=== PATIENT | male | born 1945 | race Caucasian/White ===

== ENCOUNTER 2020-07-20 13:33 | Inpatient (IN) ==
[2020-07-20] MEDS ORDERED: SODIUM CHLORIDE 0.9% 1000ML 1,000 ML IV ONE (14:49)
[2020-07-20] MEDS ORDERED: cefTRIAXone SODIUM 2,000 MG/70 ML BAG IV STA (14:52)
--- NOTE | 2020-07-20 14:53 | Emergency Department Note ---
Impression & Plan Cellulitis, Leukocytosis, prison current use of anticoagulant, Chronic atrial fibrillation ED Provider Note NAME: CONSTANCE LOPEZ AGE: 75 SEX: M : 1945 ARRIVES VIA: Walk-In INFORMANT: Patient, ED PROVIDER(S): Neto Stallworth DO CHIEF COMPLAINT: fevers HPI: Patient is a 75-year-old male who presents to the ER for weakness. Fever started this past . He notes these have been fairly persistent. He has followed up with his PCP. He admits to intermittent headaches. These are not constant. No stiff neck. No chest pain or shortness of breath. No belly pain, nausea, vomiting, or diarrhea. No dysuria, urgency, or frequency. He has not iced some blood in his urine. He has some pain with walking on his left foot. He just noticed some redness on that left lower extremity tracking up to the ankle. No other exacerbating or remitting factors. He has had both Covid vaccines. ROS: See above HPI for pertinent positives & negatives. A total of 10 systems reviewed and were otherwise negative. PAST MEDICAL HISTORY:See Below PAST SURGICAL HISTORY:See Below FAMILY HISTORY:See Below SOCIAL HISTORY:See Below HOME MEDICATIONS:See Below ALLERGIES:See Below VITALS:See Below PHYSICAL EXAMINATION: GENERAL: Sitting up in bed, alert, well appearing, well nourished, no distress, non-toxic EYE EXAM: normal conjunctiva. PERRL and EOM's grossly intact. OROPHARYNX: no exudate, no erythema, lips, buccal mucosa, and tongue normal and mucous membranes are moist NECK: supple, no nuchal rigidity, no adenopathy, non-tender LUNGS: Clear to auscultation. Normal chest wall mechanics HEART: tachy, S1 normal and S2 normal ABDOMEN: abdomen soft, non-tender, normo-active bowel sounds, no masses, no rebound or guarding. BACK: Back is symmetrical on inspection and there is no deformity, no midline tenderness, no CVA tenderness. SKIN: Redness over left lower foot tracking up to the ankle. redness of of the right foot UPPER EXTREMITIES: upper extremities are grossly normal. LOWER EXTREMITIES: No pitting edema. NEURO EXAM: Normal sensorium, cranial nerves II-XII grossly intact, normal speech, no gross weakness of arms, no gross weakness of legs. Unstable in the feet MEDICAL DECISION MAKING: Patient is a 75-year-old gentleman who presents the ER for fevers and not feeling well as well having trouble ambulating. IV was established blood was obtained. Labs show leukocytosis 11,000. No significant anemia. There was a thrombocytopenia at 98. INR at 2.0. BMP was unremarkable. Lactate was normal. LFTs bilirubin was remarkable for bili of 1.8. Troponin was negative. UA was contaminated. Lyme was negative. Patient was covered with IV antibiotics. He was updated bedside. Chest x-ray was unremarkable. CT abdomen pelvis was performed due to the fall and showed no acute pathology. He was given 2 g of Rocephin as I was concerned this is like a cellulitis on his lower extremities. He does have a diabetic ulcer on his right foot with some erythema bilaterally. Patient was updated bedside. Discussed with the hospitalist for further evaluation Triage Nursing notes reviewed. Limited review of prior medical records performed Vital Signs: reviewed and remarkable for tachy Differential diagnosis: Differential diagnosis includes etiologies such as sepsis, UTI, pneumonia, metabolic, electrolyte abnormalities, cardiac sources, intracerebral event, toxicologic, neurological, as well as others were entertained. ER treatment provided: See below Diagnostics interpreted by me: ECG: Sinus tachycardia rate of 104 Normal axis No PVCs QTC 415 Cardiac Monitoring: An order was placed for continuous cardiac monitoring. The monitor shows a rate of 100 with sinus rhythm. Laboratory studies: As stated above and show below. Imaging studies: CT head, abdomen pelvis and chest as discussed above Consultation(s): Discussed the hospitalist for further evaluation Procedures: none Critical Care: None Past Med/Surg History Medical History BPH (benign prostatic hyperplasia) Chronic atrial fibrillation CKD (chronic kidney disease) stage 3, GFR 30-59 ml/min GERD (gastroesophageal reflux disease) History of Meniere's disease HLA B27 (HLA B27 positive) HLD (hyperlipidemia) HTN (hypertension) intermission coordinator current use of anticoagulant Long-term current use of steroids T2DM (type 2 diabetes mellitus) Surgical History History of cataract extraction History of knee replacement procedure of right knee History of prostate surgery Family History (Updated 07/20/20 @ 18:19 by Shalini Martinez PA-C) Mother Hypertension Father Myocardial infarction Coronary heart disease AAA (abdominal aortic aneurysm) Diabetes Social History (Updated 07/20/20 @ 18:24 by Shalini Martinez PA-C) Smoking Status: Former smoker Tobacco Type: Cigarettes packs per day: 1; Years Smoked: 25; Hx Alcohol Use: No Hx Substance Use: No Preferred Language: Belarusian marital status: Current Living Situation: Spouse Feels Safe at Home: Yes Allergies Allergies Allergy/AdvReac Type Severity Reaction Status Date / Time No Known Allergies Allergy Unverified 07/20/20 16:23 Home Meds Home Medications Medication Instructions Recorded Confirmed allopurinol 450 mg PO DAILY 07/20/20 07/20/20 brimonidine [Alphagan] 1 drp OPB BID 07/20/20 07/20/20 cholecalciferol (vitamin D3) 25 mcg PO HS 07/20/20 07/20/20 [Vitamin D3] diclofenac sodium 2 g TOPICAL QID PRN 07/20/20 07/20/20 enalapril maleate 10 mg PO DAILY 07/20/20 07/20/20 finasteride 5 mg PO DAILY 07/20/20 07/20/20 metformin 500 mg PO DAILY 07/20/20 07/20/20 metoprolol tartrate 50 mg PO BID 07/20/20 07/20/20 multivitamin 1 tab PO DAILY 07/20/20 07/20/20 prednisolone acetate [Pred Forte] 1 drp OPR DAILY 07/20/20 07/20/20 prednisone 10 mg PO DAILY 07/20/20 07/20/20 rosuvastatin 40 mg PO HS 07/20/20 07/20/20 saw palmetto 0 mg PO DAILY 07/20/20 07/20/20 silver sulfadiazine [Silvadene] 1 applic TOPICAL DAILY PRN 07/20/20 07/20/20 warfarin 5 mg PO DAILY 07/20/20 07/20/20 Results & Data (ED) Vital Signs Vital Signs - 24 hr 07/20/20 14:04 07/20/20 14:55 07/20/20 15:07 Temperature 36.8 C Temperature Source Oral Pulse Rate 121 H Pulse Rate [Right Finger] 110 H Respiratory Rate 26 H 24 Blood Pressure 123/88 Blood Pressure [Right Arm] 115/83 Blood Pressure Mean 99 Blood Pressure Mean [Right Arm] 93 Pulse Oximetry 97 94 Oxygen Delivery Method Room Air Room Air Room Air Sepsis Recent Fever Within 48 Hours Yes Sepsis New/Unexplained Change in Mental Status No Sepsis Action Taken by Nursing No Action Required 07/20/20 15:09 07/20/20 15:30 Temperature Temperature Source Pulse Rate Pulse Rate [Right Finger] 110 H 112 H Respiratory Rate 24 20 Blood Pressure Blood Pressure [Right Arm] 115/83 121/90 Blood Pressure Mean Blood Pressure Mean [Right Arm] 93 100 Pulse Oximetry 95 94 Oxygen Delivery Method Room Air Sepsis Recent Fever Within 48 Hours Sepsis New/Unexplained Change in Mental Status Sepsis Action Taken by Nursing Laboratory Data Result diagrams: 07/20/20 15:17 07/20/20 15:17 Lab Results 07/20/20 07/20/20 07/20/20 Range/Units 15:00 15:05 15:05 WBC (4.8-10.8) K/uL RBC (4.7-6.1) M/uL Hgb (14.0-18.0) g/dL POC Hgb (14.0-18.0) g/dl Hct (42-52) % POC Hct (42-52) % MCV (80-100) fL MCH (25-34) pg MCHC (32-36) g/dL RDW Std Deviation (36.4-46.3) fL RDW Coeff of Audie (11.5-14.5) % Plt Count (130-400) K/uL MPV (7.4-10.4) fL Immature Gran % (Auto) % Neut % (Auto) % Lymph % (Auto) % [place] % (Auto) % Eos % (Auto) % Baso % (Auto) % Neut # (Auto) (1.4-6.5) K/uL Lymph # (Auto) (1.2-3.4) K/uL [place] # (Auto) (0.11-0.59) K/uL Eos # (Auto) (0-0.5) K/uL Baso # (Auto) (0-0.2) K/uL Immature Gran # (Auto) (0.00-0.02) K/uL Platelet Estimate (Normal) ESR (0-20) mm/hr PT (9.0-12.0) Seconds INR (0.9-1.1) APTT (21.0-31.0) Seconds PTT Ratio POC Sodium (135-144) mmol/L Sodium (136-145) mmol/L POC Potassium (3.3-5.0) mmol/L Potassium (3.5-5.1) mmol/L POC Chloride (101-112) mmol/L Chloride (98-107) mmol/L Carbon Dioxide (21-32) mmol/L POC Total CO2 (24-31) mmol/L Anion Gap (3-11) POC Anion Gap (16-25) mmol/L POC BUN (7-18) mg/dl BUN (7-18) mg/dl Creatinine (0.6-1.4) mg/dl POC Creatinine (0.6-1.3) mg/dl Est Cr Clr Drug Dosing ml/min Est GFR ( Amer) Est GFR (Non-Af Amer) BUN/Creatinine Ratio (10-20) Glucose (70-99) mg/dl POC Glucose (other) (70-99) mg/dl Lactate (0.4-2.0) mmol/L Calcium (8.5-10.1) mg/dl POC Ioniz Calcium Lyndsey (1.12-1.32) mmol/l Magnesium (1.8-2.4) mg/dl Total Bilirubin (0.2-1) mg/dl AST (15-37) U/L ALT (12-78) U/L Alkaline Phosphatase (45-117) U/L Troponin I (0-0.045) ng/ml C-Reactive Protein (0-0.29) mg/dl Total Protein (6.4-8.2) gm/dl Albumin (3.4-5.0) gm/dl Globulin (2.5-4.0) gm/dl Albumin/Globulin Ratio (0.9-2) Procalcitonin (0-0.5) ng/ml Urine Color Yellow Urine Appearance Clear (Clear) Urine pH 6.0 (4.5-7.5) Ur Specific Baxter 1.017 (1.000-1.030) Urine Protein 2+ H (Negative) Urine Glucose (UA) Negative (Negative) Urine Ketones Negative (Negative) Urine Blood 3+ H (Negative) Urine Nitrite Negative (Negative) Urine Bilirubin Negative (Negative) Urine Urobilinogen Negative (Negative) Ur Leukocyte Esterase Negative (Negative) Urine WBC (Auto) 1-5 (0-5) /hpf Urine RBC (Auto) >30 H (0-4) /hpf U Hyaline Cast (Auto) 5-10 H (0-5) /lpf U Epithel Cells (Auto) >30 H (0-5) /lpf Urine Bacteria (Auto) Negative (Negative) Anaplasma Smear Lyme Disease IgG Ab (Negative) Lyme Disease IgM Ab (Negative) COVID-[address] Eval [address] CovFluRsv at [facility] SARS-CoV-2 (PCR) NEGATIVE (Negative) Influenza Type A (PCR) Negative (Neg) Influenza Type B (PCR) Negative (Neg) RSV (RT-PCR) Negative (Neg) 07/20/20 07/20/20 07/20/20 Range/Units 15:17 15:17 15:17 WBC 11.22 H (4.8-10.8) K/uL RBC 5.27 (4.7-6.1) M/uL Hgb 16.8 (14.0-18.0) g/dL POC Hgb (14.0-18.0) g/dl Hct 49.3 (42-52) % POC Hct (42-52) % MCV 93.5 (80-100) fL MCH 31.9 (25-34) pg MCHC 34.1 (32-36) g/dL RDW Std Deviation 48.3 H (36.4-46.3) fL RDW Coeff of Audie 14.1 (11.5-14.5) % Plt Count 98 L (130-400) K/uL MPV 11.9 H (7.4-10.4) fL Immature Gran % (Auto) 0.4 % Neut % (Auto) 68.4 % Lymph % (Auto) 12.5 % [place] % (Auto) 18.5 % Eos % (Auto) 0.1 % Baso % (Auto) 0.1 % Neut # (Auto) 7.67 H (1.4-6.5) K/uL Lymph # (Auto) 1.40 (1.2-3.4) K/uL [place] # (Auto) 2.08 H (0.11-0.59) K/uL Eos # (Auto) 0.01 (0-0.5) K/uL Baso # (Auto) 0.01 (0-0.2) K/uL Immature Gran # (Auto) 0.05 H (0.00-0.02) K/uL Platelet Estimate Decreased L (Normal) ESR (0-20) mm/hr PT 18.8 H (9.0-12.0) Seconds INR 2.0 H (0.9-1.1) APTT 37.3 H (21.0-31.0) Seconds PTT Ratio 1.4 POC Sodium (135-144) mmol/L Sodium 140 (136-145) mmol/L POC Potassium (3.3-5.0) mmol/L Potassium 4.0 (3.5-5.1) mmol/L POC Chloride (101-112) mmol/L Chloride 104 (98-107) mmol/L Carbon Dioxide 28 (21-32) mmol/L POC Total CO2 (24-31) mmol/L Anion Gap 8.0 (3-11) POC Anion Gap (16-25) mmol/L POC BUN (7-18) mg/dl BUN 25 H (7-18) mg/dl Creatinine 1.13 (0.6-1.4) mg/dl POC Creatinine (0.6-1.3) mg/dl Est Cr Clr Drug Dosing 68.1 ml/min Est GFR ( Amer) 74.3 Est GFR (Non-Af Amer) 64.1 BUN/Creatinine Ratio 22.1 H (10-20) Glucose 160 H (70-99) mg/dl POC Glucose (other) (70-99) mg/dl Lactate (0.4-2.0) mmol/L Calcium 9.0 (8.5-10.1) mg/dl POC Ioniz Calcium Lyndsey (1.12-1.32) mmol/l Magnesium 2.1 (1.8-2.4) mg/dl Total Bilirubin 1.8 H (0.2-1) mg/dl AST 20 (15-37) U/L ALT 35 (12-78) U/L Alkaline Phosphatase 38 L (45-117) U/L Troponin I < 0.015 (0-0.045) ng/ml C-Reactive Protein 15.00 H (0-0.29) mg/dl Total Protein 7.4 (6.4-8.2) gm/dl Albumin 3.3 L (3.4-5.0) gm/dl Globulin 4.1 H (2.5-4.0) gm/dl Albumin/Globulin Ratio 0.8 L (0.9-2) Procalcitonin (0-0.5) ng/ml Urine Color Urine Appearance (Clear) Urine pH (4.5-7.5) Ur Specific Baxter (1.000-1.030) Urine Protein (Negative) Urine Glucose (UA) (Negative) Urine Ketones (Negative) Urine Blood (Negative) Urine Nitrite (Negative) Urine Bilirubin (Negative) Urine Urobilinogen (Negative) Ur Leukocyte Esterase (Negative) Urine WBC (Auto) (0-5) /hpf Urine RBC (Auto) (0-4) /hpf U Hyaline Cast (Auto) (0-5) /lpf U Epithel Cells (Auto) (0-5) /lpf Urine Bacteria (Auto) (Negative) Anaplasma Smear See Comment Lyme Disease IgG Ab (Negative) Lyme Disease IgM Ab (Negative) COVID-19 Eval Order SARS-CoV-2 (PCR) (Negative) Influenza Type A (PCR) (Neg) Influenza Type B (PCR) (Neg) RSV (RT-PCR) (Neg) 07/20/20 07/20/20 07/20/20 Range/Units 15:17 15:17 15:17 WBC (4.8-10.8) K/uL RBC (4.7-6.1) M/uL Hgb (14.0-18.0) g/dL POC Hgb (14.0-18.0) g/dl Hct (42-52) % POC Hct (42-52) % MCV (80-100) fL MCH (25-34) pg MCHC (32-36) g/dL RDW Std Deviation (36.4-46.3) fL RDW Coeff of Audie (11.5-14.5) % Plt Count (130-400) K/uL MPV (7.4-10.4) fL Immature Gran % (Auto) % Neut % (Auto) % Lymph % (Auto) % [place] % (Auto) % Eos % (Auto) % Baso % (Auto) % Neut # (Auto) (1.4-6.5) K/uL Lymph # (Auto) (1.2-3.4) K/uL [place] # (Auto) (0.11-0.59) K/uL Eos # (Auto) (0-0.5) K/uL Baso # (Auto) (0-0.2) K/uL Immature Gran # (Auto) (0.00-0.02) K/uL Platelet Estimate (Normal) ESR (0-20) mm/hr PT (9.0-12.0) Seconds INR (0.9-1.1) APTT (21.0-31.0) Seconds PTT Ratio POC Sodium (135-144) mmol/L Sodium (136-145) mmol/L POC Potassium (3.3-5.0) mmol/L Potassium (3.5-5.1) mmol/L POC Chloride (101-112) mmol/L Chloride (98-107) mmol/L Carbon Dioxide (21-32) mmol/L POC Total CO2 (24-31) mmol/L Anion Gap (3-11) POC Anion Gap (16-25) mmol/L POC BUN (7-18) mg/dl BUN (7-18) mg/dl Creatinine (0.6-1.4) mg/dl POC Creatinine (0.6-1.3) mg/dl Est Cr Clr Drug Dosing ml/min Est GFR ( Amer) Est GFR (Non-Af Amer) BUN/Creatinine Ratio (10-20) Glucose (70-99) mg/dl POC Glucose (other) (70-99) mg/dl Lactate 1.8 (0.4-2.0) mmol/L Calcium (8.5-10.1) mg/dl POC Ioniz Calcium Lyndsey (1.12-1.32) mmol/l Magnesium (1.8-2.4) mg/dl Total Bilirubin (0.2-1) mg/dl AST (15-37) U/L ALT (12-78) U/L Alkaline Phosphatase (45-117) U/L Troponin I (0-0.045) ng/ml C-Reactive Protein (0-0.29) mg/dl Total Protein (6.4-8.2) gm/dl Albumin (3.4-5.0) gm/dl Globulin (2.5-4.0) gm/dl Albumin/Globulin Ratio (0.9-2) Procalcitonin 0.64 H (0-0.5) ng/ml Urine Color Urine Appearance (Clear) Urine pH (4.5-7.5) Ur Specific Baxter (1.000-1.030) Urine Protein (Negative) Urine Glucose (UA) (Negative) Urine Ketones (Negative) Urine Blood (Negative) Urine Nitrite (Negative) Urine Bilirubin (Negative) Urine Urobilinogen (Negative) Ur Leukocyte Esterase (Negative) Urine WBC (Auto) (0-5) /hpf Urine RBC (Auto) (0-4) /hpf U Hyaline Cast (Auto) (0-5) /lpf U Epithel Cells (Auto) (0-5) /lpf Urine Bacteria (Auto) (Negative) Anaplasma Smear Lyme Disease IgG Ab Negative (Negative) Lyme Disease IgM Ab Negative (Negative) COVID-19 Eval Order SARS-CoV-2 (PCR) (Negative) Influenza Type A (PCR) (Neg) Influenza Type B (PCR) (Neg) RSV (RT-PCR) (Neg) 07/20/20 07/20/20 Range/Units 15:17 15:28 WBC (4.8-10.8) K/uL RBC (4.7-6.1) M/uL Hgb (14.0-18.0) g/dL POC Hgb 17.7 (14.0-18.0) g/dl Hct (42-52) % POC Hct 52 (42-52) % MCV (80-100) fL MCH (25-34) pg MCHC (32-36) g/dL RDW Std Deviation (36.4-46.3) fL RDW Coeff of Audie (11.5-14.5) % Plt Count (130-400) K/uL MPV (7.4-10.4) fL Immature Gran % (Auto) % Neut % (Auto) % Lymph % (Auto) % [place] % (Auto) % Eos % (Auto) % Baso % (Auto) % Neut # (Auto) (1.4-6.5) K/uL Lymph # (Auto) (1.2-3.4) K/uL [place] # (Auto) (0.11-0.59) K/uL Eos # (Auto) (0-0.5) K/uL Baso # (Auto) (0-0.2) K/uL Immature Gran # (Auto) (0.00-0.02) K/uL Platelet Estimate (Normal) ESR 42 H (0-20) mm/hr PT (9.0-12.0) Seconds INR (0.9-1.1) APTT (21.0-31.0) Seconds PTT Ratio POC Sodium 138 (135-144) mmol/L Sodium (136-145) mmol/L POC Potassium 3.8 (3.3-5.0) mmol/L Potassium (3.5-5.1) mmol/L POC Chloride 100 L (101-112) mmol/L Chloride (98-107) mmol/L Carbon Dioxide (21-32) mmol/L POC Total CO2 27 (24-31) mmol/L Anion Gap (3-11) POC Anion Gap 16.0 (16-25) mmol/L POC BUN 25 H (7-18) mg/dl BUN (7-18) mg/dl Creatinine (0.6-1.4) mg/dl POC Creatinine 1.1 (0.6-1.3) mg/dl Est Cr Clr Drug Dosing ml/min Est GFR ( Amer) Est GFR (Non-Af Amer) BUN/Creatinine Ratio (10-20) Glucose (70-99) mg/dl POC Glucose (other) 158 H (70-99) mg/dl Lactate (0.4-2.0) mmol/L Calcium (8.5-10.1) mg/dl POC Ioniz Calcium Lyndsey 1.19 (1.12-1.32) mmol/l Magnesium (1.8-2.4) mg/dl Total Bilirubin (0.2-1) mg/dl AST (15-37) U/L ALT (12-78) U/L Alkaline Phosphatase (45-117) U/L Troponin I (0-0.045) ng/ml C-Reactive Protein (0-0.29) mg/dl Total Protein (6.4-8.2) gm/dl Albumin (3.4-5.0) gm/dl Globulin (2.5-4.0) gm/dl Albumin/Globulin Ratio (0.9-2) Procalcitonin (0-0.5) ng/ml Urine Color Urine Appearance (Clear) Urine pH (4.5-7.5) Ur Specific Baxter (1.000-1.030) Urine Protein (Negative) Urine Glucose (UA) (Negative) Urine Ketones (Negative) Urine Blood (Negative) Urine Nitrite (Negative) Urine Bilirubin (Negative) Urine Urobilinogen (Negative) Ur Leukocyte Esterase (Negative) Urine WBC (Auto) (0-5) /hpf Urine RBC (Auto) (0-4) /hpf U Hyaline Cast (Auto) (0-5) /lpf U Epithel Cells (Auto) (0-5) /lpf Urine Bacteria (Auto) (Negative) Anaplasma Smear Lyme Disease IgG Ab (Negative) Lyme Disease IgM Ab (Negative) COVID-19 Eval Order SARS-CoV-2 (PCR) (Negative) Influenza Type A (PCR) (Neg) Influenza Type B (PCR) (Neg) RSV (RT-PCR) (Neg) Administered Medications Discontinued Medications Sodium Chloride (Nss 1000ml) 1,000 mls @ 999 mls/hr IV .[id number] ONE Stop: 07/20/20 15:49 Last Infusion: 07/20/20 19:40 Dose: 0 mls/hr Documented by: [id number] Admin: 07/20/20 15:10 Dose: 999 mls/hr Documented by: [id number] Ceftriaxone Sodium (Rocephin) 2,000 mg in 70 mls @ 140 mls/hr IV NOW STA Stop: 07/20/20 15:21 Last Infusion: 07/20/20 19:40 Dose: 0 mls/hr Documented by: [id number] Admin: 07/20/20 15:28 Dose: 140 mls/hr Documented by: [id number] Ioversol (Optiray 300 100ml) 85 ml IV ONCE ONE Stop: 07/20/20 16:33 Last Admin: 07/20/20 16:32 Dose: 85 ml Documented by: [id number] Imaging Data Radiologist's Impression: Chest X-Ray 07/20/20 14:42 XR chest 1V portable CLINICAL HISTORY: SEPSIS COMPARISON STUDY: No previous studies for comparison. FINDINGS: Lung volumes are normal. There is no pneumothorax or pleural effusion. No consolidation is identified. Interstitial prominence is noted. Note is made of mild to moderate cardiomegaly. IMPRESSION: 1. No consolidation. 2. Interstitial prominence with favors pulmonary vascular congestion. 3. Cardiomegaly. ACT 112: Negative or not required by law. Electronically signed by: Juan Romero M.D. 07/20/2020 3:10 PM Abdomen/Pelvis CT 07/20/20 14:49 CT OF THE ABDOMEN AND PELVIS WITH CONTRAST CLINICAL HISTORY: fall hit back COMPARISON STUDY: None. TECHNIQUE: Following IV administration of 85 mL of Optiray, axial images of the abdomen and pelvis were obtained from the lung bases to the proximal femurs. Images were reviewed in the axial, sagittal, and coronal planes. IV contrast was administered without complication. Automated exposure control was utilized for the study. A dose lowering technique was utilized adhering to the principles of ALARA. CT DOSE: 2201.42 mGy.cm FINDINGS: There may be a mild left flank contusion. No hemoperitoneum or pneumoperitoneum is noted. The heart is enlarged. Groundglass opacities within the lower lungs probably reflect atelectasis. There is no evidence for traumatic injury to the liver, spleen, adrenal glands, kidneys or pancreas. Several large calculi within the lower pole of the left kidney measure up to 3.1 cm. Multiple tiny right renal lesions are too small to characterize. There are no ureteral calculi. There is no hydronephrosis or hydroureter. Note is made of moderate enlargement of the prostate and a 2.4 cm irregular bladder calculus. A few renal cysts are noted. In addition, there is a 2.3 cm lesion within the midpole of the right kidney which demonstrates probable enhancement. There is no biliary or pancreatic ductal dilatation. There is no evidence for a bowel obstruction. Colonic diverticulosis is noted without evidence for acute diverticulitis. No acute fracture is identified within the visualized skeletal structures. IMPRESSION: 1. Possible small left flank contusion. No additional acute traumatic findings within the abdomen or pelvis. 2. 2.3 cm right renal lesion which demonstrates probable enhancement. This favors a solid renal lesion such as renal carcinoma. A complex cyst could appear similar. Nonemergent renal protocol MRI is recommended for further evaluation. 3. Multiple large left renal calculi. No ureteral calculi. 2.4 cm bladder calculus. Enlarged prostate. ACT 112: Positive. There are findings on this exam that require communication between the performing entity and the patient following Patient Test Result Information Act ([place] Act 112) guidelines. Electronically signed by: Juan Romero M.D. 07/20/2020 5:[address] 07/20/20 14:49 CT OF THE HEAD WITHOUT CONTRAST CLINICAL HISTORY: Fall. COMPARISON STUDY: No previous studies for comparison. TECHNIQUE: Helical axial images of the head were obtained without IV contrast. Automated exposure control was utilized for the study. A dose lowering technique was utilized adhering to the principles of ALARA. FINDINGS: No acute intracranial hemorrhage, midline shift or mass effect is present. The ventricular system is unremarkable. The basal cisterns are patent. No extra-axial collections are present. There are no findings to suggest acute dural sinus thrombosis or acute territorial infarct. No significant calvarial abnormalities are present. Visualized portions of the sinuses and mastoid air cells are clear. IMPRESSION: 1. No acute intracranial findings. 2. No calvarial fracture. ACT 112: Negative or not required by law. Electronically signed by: Juan Romero M.D. 07/20/2020 4:48 PM Discharge Plan Visit Data Chief Complaint: Fever Stated Complaint: FEVER CHILLS ED Provider: Neto Stallworth Discharge Problem: Cellulitis, Leukocytosis, prison current use of anticoagulant, Chronic atrial fibrillation Forms Stand Alone Forms: My [facility] Prescriptions Prescriptions: No Action allopurinol 300 mg tablet 450 mg PO DAILY RF: 0 multivitamin Tablet 1 tab PO DAILY RF: 0 saw palmetto 80 mg Capsule 0 mg PO DAILY RF: 0 silver sulfadiazine [Silvadene] 1 % Cream 1 applic TOPICAL DAILY PRN (Reason: ..) RF: 0 prednisone 10 mg tablet 10 mg PO DAILY RF: 0 enalapril maleate 10 mg tablet 10 mg PO DAILY RF: 0 prednisolone acetate [Pred Forte] 1 % Drops,Suspension 1 drp OPR DAILY RF: 0 warfarin 5 mg tablet 5 mg PO DAILY RF: 0 brimonidine [Alphagan] 0.2 % Drops 1 drp OPB BID RF: 0 metoprolol tartrate 50 mg tablet 50 mg PO BID RF: 0 metformin 500 mg tablet extended release 24 hr 500 mg PO DAILY RF: 0 finasteride 5 mg tablet 5 mg PO DAILY RF: 0 rosuvastatin 40 mg tablet 40 mg PO HS RF: 0 cholecalciferol (vitamin D3) [Vitamin D3] 25 mcg (1,000 unit) Tablet 25 mcg PO HS RF: 0 diclofenac sodium 1 % Gel 2 g TOPICAL QID PRN (Reason: Pain) RF: 0 Discharge Problem: Cellulitis Qualifiers: Site of cellulitis: unspecified site Qualified Code(s): L03.90 - Cellulitis, unspecified Leukocytosis Qualifiers: Leukocytosis type: unspecified Qualified Code(s): D72.829 - Elevated white blood cell count, unspecified
--- NOTE | 2020-07-20 15:11 | XRay Report ---
XR chest 1V portable CLINICAL HISTORY: SEPSIS COMPARISON STUDY: No previous studies for comparison. FINDINGS: Lung volumes are normal. There is no pneumothorax or pleural effusion. No consolidation is identified. Interstitial prominence is noted. Note is made of mild to moderate cardiomegaly. IMPRESSION: 1. No consolidation. 2. Interstitial prominence with favors pulmonary vascular congestion. 3. Cardiomegaly. ACT 112: Negative or not required by law. Electronically signed by: Juan Romero M.D. 07/20/2020 3:10 PM
[2020-07-20 15:20] LABS: Appearance Urine Clear (Clear); Bacteria Urine Automated Negative (Negative); Bilirubin Urine Negative (Negative); Blood Urine 3+ (Negative); Color Urine Yellow; Epithelial Cell Urine Auto >30 /lpf (0-5); Glucose Urine UA Negative (Negative); Ketones Urine Negative (Negative); Leukocyte Esterase Urine Negative (Negative); Nitrite Urine Negative (Negative); Protein Urine 2+ (Negative); RBC Urine Automated >30 /hpf (0-4); Specific Gravity Urine 1.017 (1.000-1.030); Urobilinogen Urine Negative (Negative)
[2020-07-20 15:42] LABS: Partial Thromboplastin Ratio 1.4; Partial Thromboplastin Time 37.3 Seconds (21.0-31.0); Prothrombin Time 18.8 Seconds (9.0-12.0)
[2020-07-20 15:42] LABS: iSTAT Creatinine 1.1 mg/dl (0.6-1.3); iSTAT Hemoglobin 17.7 g/dl (14.0-18.0); iSTAT Ionized Calcium 1.19 mmol/l (1.12-1.32); iSTAT Potassium 3.8 mmol/L (3.3-5.0)
[2020-07-20 15:45] LABS: Basophils # (auto) 0.01 K/uL (0-0.2); Basophils % (auto) 0.1 %; Eosinophils # (auto) 0.01 K/uL (0-0.5); Eosinophils % (auto) 0.1 %; Hematocrit (blood only) 49.3 % (42-52); Hemoglobin 16.8 g/dL (14.0-18.0); Immature Granulocytes # (auto) 0.05 K/uL (0.00-0.02); Immature Granulocytes % (auto) 0.4 %; Lymphocytes % (auto) 12.5 %; Mean Corpuscular Hemoglobin 31.9 pg (25-34); Mean Corpuscular Hgb Conc 34.1 g/dL (32-36); Mean Corpuscular Volume 93.5 fL (80-100); Mean Platelet Volume 11.9 fL (7.4-10.4); Monocytes # (auto) 2.08 K/uL (0.11-0.59); Monocytes % (auto) 18.5 %; Neutrophils # (auto) 7.67 K/uL (1.4-6.5); Neutrophils % (auto) 68.4 %; Platelet Count 98 K/uL (130-400); Platelet Estimate Decreased (Normal); RDW Coefficient of Variation 14.1 % (11.5-14.5); RDW Standard Deviation 48.3 fL (36.4-46.3); Red Blood Count 5.27 M/uL (4.7-6.1); White Blood Count 11.22 K/uL (4.8-10.8)
[2020-07-20 15:48] LABS: Alanine Aminotransferase 35 U/L (12-78); Albumin Level 3.3 gm/dl (3.4-5.0); Aspartate Aminotransferase 20 U/L (15-37); BUN Creatinine Ratio 22.1 (10-20); Blood Urea Nitrogen 25 mg/dl (7-18); Carbon Dioxide 28 mmol/L (21-32); Chloride 104 mmol/L (98-107); Creatinine Clr Calc Pharmacy 68.1 ml/min; Est GFR (African American) 74.3; Est GFR (Non-African American) 64.1; Glucose 160 mg/dl (70-99); Magnesium 2.1 mg/dl (1.8-2.4); Sodium 140 mmol/L (136-145)
[2020-07-20 15:53] LABS: Albumin Globulin Ratio 0.8 (0.9-2); Alkaline Phosphatase 38 U/L (45-117); Bilirubin,Total 1.8 mg/dl (0.2-1); Globulin 4.1 gm/dl (2.5-4.0); Total Protein 7.4 gm/dl (6.4-8.2); Troponin I < 0.015 ng/ml (0-0.045)
[2020-07-20 16:09] LABS: Influenza A virus by PCR Negative (Neg); Influenza B virus by PCR Negative (Neg); RSV by PCR Negative (Neg); SARS CoV2 RNA(COVID-19) InHosp NEGATIVE (Negative)
[2020-07-20] MEDS ORDERED: OPTIRAY 300 100mL IV ONE (16:32)
--- NOTE | 2020-07-20 16:49 | CT Scan Report ---
CT OF THE HEAD WITHOUT CONTRAST CLINICAL HISTORY: Fall. COMPARISON STUDY: No previous studies for comparison. TECHNIQUE: Helical axial images of the head were obtained without IV contrast. Automated exposure con trol was utilized for the study. A dose lowering technique was utilized adhering to the principles o f ALARA. FINDINGS: No acute intracranial hemorrhage, midline shift or mass effect is present. The ventricular system is unremarkable. The basal cisterns are patent. No extra-axial collections are present. There are no findings to suggest acute dural sinus thrombosis or acute territorial infarct. No significant calvarial abnormalities are present. Visualized portions of the sinuses and mastoid air cells are ethan ar. IMPRESSION: 1. No acute intracranial findings. 2. No calvarial fracture. ACT 112: Negative or not required by law. Electronically signed by: Juan Romero M.D. 07/20/2020 4:48 PM
--- NOTE | 2020-07-20 17:30 | CT Scan Report ---
CT OF THE ABDOMEN AND PELVIS WITH CONTRAST CLINICAL HISTORY: fall hit back COMPARISON STUDY: None. TECHNIQUE: Following IV administration of 85 mL of Optiray, axial images of the abdomen and pelvis we re obtained from the lung bases to the proximal femurs. Images were reviewed in the axial, sagittal, and coronal planes. IV contrast was administered without complication. Automated exposure control wa s utilized for the study. A dose lowering technique was utilized adhering to the principles of ALARA . CT DOSE: 2201.42 mGy.cm FINDINGS: There may be a mild left flank contusion. No hemoperitoneum or pneumoperitoneum is noted. T he heart is enlarged. Groundglass opacities within the lower lungs probably reflect atelectasis. Ther e is no evidence for traumatic injury to the liver, spleen, adrenal glands, kidneys or pancreas. Effie ral large calculi within the lower pole of the left kidney measure up to 3.1 cm. Multiple tiny right renal lesions are too small to characterize. There are no ureteral calculi. There is no hydronephrosi s or hydroureter. Note is made of moderate enlargement of the prostate and a 2.4 cm irregular bladder calculus. A few renal cysts are noted. In addition, there is a 2.3 cm lesion within the midpole of t he right kidney which demonstrates probable enhancement. There is no biliary or pancreatic ductal dil atation. There is no evidence for a bowel obstruction. Colonic diverticulosis is noted without eviden ce for acute diverticulitis. No acute fracture is identified within the visualized skeletal structure s. IMPRESSION: 1. Possible small left flank contusion. No additional acute traumatic findings within the abdomen or pelvis. 2. 2.3 cm right renal lesion which demonstrates probable enhancement. This favors a solid renal lesio n such as renal carcinoma. A complex cyst could appear similar. Nonemergent renal protocol MRI is rec ommended for further evaluation. 3. Multiple large left renal calculi. No ureteral calculi. 2.4 cm bladder calculus. Enlarged prostate . ACT 112: Positive. There are findings on this exam that require communication between the performing entity and the patient following Patient Test Result Information Act ([place] Act 112) guidelines. Electronically signed by: Juan Romero M.D. 07/20/2020 5:29 PM
--- NOTE | 2020-07-20 18:24 | History & Physical Report ---
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 Pt does not meet SIRS/SEPSIS criteria; however there is concern for developing sepsis in pt who is on chronic steroid therapy Tachycardic w/ HR 110s, WBC 11k, elevated ESR: 42, CRP: 15, Procal 0.64, thromb ocytopenic, elevated bilirubin received empiric IV rocephin and 1L of IVF in ED Source: Possible R foot cellulitis vs underlying OM in setting of diabetes, pt with callused ulceration to R lateral foot with extending erythema proximally, marked with skin marker admit to med tele empiric broad spectrum IV antibiotics Vanco/Cefepime blood/urine cultures pending obtain CT R foot given elevated ESR/CRP, ulcerated lesion eval for osteo consider further imaging based on findings vs MRI consider ortho consult based on imaging IVF 80 cc/hr, vitals stable repeat labs in a.m. consult wound care (4) Abnormal CT of the abdomen: (5) Asymptomatic microscopic hematuria: 2.3 cm right renal lesion which demonstrates probable enhancement. This favors a solid renal lesion such as renal carcinoma. A complex cyst could appear similar. Nonemergent renal protocol MRI is recommended for further evaluation. Multiple large left renal calculi. No ureteral calculi. 2.4 cm bladder calculus. Enlarged prostate. obtain MRI renal protocol consult urology repeat UA in a.m. possible in setting of nephrolithiasis vs ? renal lesion (6) Chronic atrial fibrillation: A. fib with RVR in ED, heart rates low 100s Likely in setting of underlying infection Continue metoprolol and warfarin INR therapeutic As needed IV Lopressor for heart rate greater than 110 (7) T2DM (type 2 diabetes mellitus): Controlled, last A1c 06/05/2020 7.3 Hold Metformin Lantus/NovoLog per protocol (8) HTN (hypertension): Continue metoprolol Hold enalapril due to concern for sepsis and lower BP Resume when able (9) Long-term current use of steroids: pt on chronic prednisone 2/2 to disseminated chorioretinitis Hold prednisone for now in setting of possible sepsis (10) DVT prophylaxis: continue warfarin Dispo: med tele PCP: Pepe DNR/DNI Pt was seen and examined in collaboration with Dr. Orta, please see addendum History of Present Illness Chief Complaint: fever, chills and dizziness off/on x 5 days. 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 Sx would occur at night and in a.m. would resolve. Sx initially started on Tuesday night. He developed fever of low 100 and chills. Sx resolved and he was okay on and Tuesday. He tried motrin with mild relief. This afternoon he had an fever 103. He complains of b/l feet pain, difficulty walk, lesion on R lateral foot, redness to foot, dizziness and generalized week. He has been having difficulty with balance. 5 days ago he fell in the bedroom into the window and developed bruising to L lower back. He got out of bed and couldn't stay steady. at bedside noticed increasing redness to right foot the last 2 days. He denies any n/v/d, abdominal pain, chest pain, sob, cough, URI sx, dysuria, increased urgency or frequency with urination, hematuria, melena, hematochezia and diarrhea. He has osteoarthritis and hammer toes and achilles tendinitis so his feet always hurt. Over the last 2 days the pain has worsened. He has been compliant with medications. states BP has been running on lower side past few weeks. In ED patient made hemodynamically stable although mildly tachycardic. Work-up revealed elevated WBC 11.22k, thrombocytopenia 98, INR 2.0, ESR 42, CRP 15, BUN 25, creatinine 1.13 1.8-1.64. His urinalysis was negative for UTI but was positive for laparoscopic hematuria. His Lyme titer was negative and Anaplasma smear negative. Head CT was without acute abnormality. CT abdomen pelvis revealed small left lung contusion, 2.3 cm right renal lesion demonstrating peripheral enhancement favoring a solid renal lesion such as renal carcinoma. Complex cyst could appear similar. Nonemergent renal protocol MRI recommended. Multiple large left renal calculi. No ureteral calculi. 2.4 cm bladder calculus. In ED patient received 1 L of IV fluid as well as 2 g IV Rocephin due to concern for underlying infection of unknown etiology. Allergies Allergy/AdvReac Type Severity Reaction Status Date / Time No Known Allergies Allergy Unverified 07/20/20 16:23 Home Medications Medication Instructions Recorded Confirmed Type allopurinol 450 mg PO DAILY 07/20/20 07/20/20 History brimonidine [Alphagan] 1 drp OPB BID 07/20/20 07/20/20 History cholecalciferol (vitamin D3) 25 mcg PO HS 07/20/20 07/20/20 History [Vitamin D3] diclofenac sodium 2 g TOPICAL QID PRN 07/20/20 07/20/20 History enalapril maleate 10 mg PO DAILY 07/20/20 07/20/20 History finasteride 5 mg PO DAILY 07/20/20 07/20/20 History metformin 500 mg PO DAILY 07/20/20 07/20/20 History metoprolol tartrate 50 mg PO BID 07/20/20 07/20/20 History multivitamin 1 tab PO DAILY 07/20/20 07/20/20 History prednisolone acetate [Pred Forte] 1 drp OPR DAILY 07/20/20 07/20/20 History prednisone 10 mg PO DAILY 07/20/20 07/20/20 History rosuvastatin 40 mg PO HS 07/20/20 07/20/20 History saw palmetto 0 mg PO DAILY 07/20/20 07/20/20 History silver sulfadiazine [Silvadene] 1 applic TOPICAL DAILY PRN 07/20/20 07/20/20 History warfarin 5 mg PO DAILY 07/20/20 07/20/20 History Past Med/Surg History Medical History BPH (benign prostatic hyperplasia) Chronic atrial fibrillation CKD (chronic kidney disease) stage 3, GFR 30-59 ml/min GERD (gastroesophageal reflux disease) History of Meniere's disease HLA B27 (HLA B27 positive) HLD (hyperlipidemia) 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-term current use of steroids T2DM (type 2 diabetes mellitus) Surgical History History of cataract extraction History of knee replacement procedure of right knee History of prostate surgery Family History (Updated 07/20/20 @ 18:19 by Shalini Martinez PA-C) Mother Hypertension Father Myocardial infarction Coronary heart disease AAA (abdominal aortic aneurysm) Diabetes Social History (Updated 07/20/20 @ 18:24 by Shalini Martinez PA-C) Smoking Status: Former smoker Tobacco Type: Cigarettes packs per day: 1; Years Smoked: 25; Hx Alcohol Use: No Hx Substance Use: No Preferred Language: [place] marital status: Current Living Situation: Spouse Feels Safe at Home: Yes Review of Systems Review of Systems: All systems reviewed & are unremarkable except as noted in HPI & below Physical Exam Constitutional: WD/WN, vitals as above no acute distress Eyes: PERRL, conjunctivae normal, anicteric sclerae ENMT: external ear and nose normal, oropharynx normal Neck: trachea midline, no thyromegaly Respiratory: + tachypneic; no respiratory distress (however mildly tachypneic) Auscultation: no crackles, no rhonchi and no wheezes Cardiovascular: RRR, no murmur, no edema Chest (Breasts): normal inspection/palpation of breasts Gastrointestinal (Abdomen): Inspection/Auscultation: abdomen normal to inspection; abdomen not distended Percussion/Palpation: abdomen soft (+ obese); abdomen nontender, no guarding and abdomen not rigid Musculoskeletal: Head/Neck/Chest: normocephalic and head atraumatic Skin: b/l mild pedal edema and erythema, R foot callus at midfoot and more significant erythema marked by pen Neurologic: PERRL, EOMI, accommodation nl, no face palsy, no dysarthria moves all extremities Psychiatric: A+Ox3, euthymic affect Genitourinary: no CVA tenderness (+ ecchymosis at left flank) Results & Data Results & Data ([facility]) Vital Signs (Past 12 Hours) Vital Signs Temp Pulse Pulse Resp BP BP Pulse Ox 07/20/20 15:30 112 H 20 121/90 94 07/20/20 15:09 110 H 24 115/83 95 07/20/20 15:07 110 H 24 115/83 94 07/20/20 14:04 36.8 C 121 H 26 H 123/88 97 Diagnostic Findings Chest X-Ray 07/20/20 14:42 XR chest 1V portable CLINICAL HISTORY: SEPSIS COMPARISON STUDY: No previous studies for comparison. FINDINGS: Lung volumes are normal. There is no pneumothorax or pleural effusion. No consolidation is identified. Interstitial prominence is noted. Note is made of mild to moderate cardiomegaly. IMPRESSION: 1. No consolidation. 2. Interstitial prominence with favors pulmonary vascular congestion. 3. Cardiomegaly. ACT 112: Negative or not required by law. Electronically signed by: Juan Romero M.D. 07/20/2020 3:10 PM Abdomen/Pelvis CT 07/20/20 14:49 CT OF THE ABDOMEN AND PELVIS WITH CONTRAST CLINICAL HISTORY: fall hit back COMPARISON STUDY: None. TECHNIQUE: Following IV administration of 85 mL of Optiray, axial images of the abdomen and pelvis were obtained from the lung bases to the proximal femurs. Images were reviewed in the axial, sagittal, and coronal planes. IV contrast was administered without complication. Automated exposure control was utilized for the study. A dose lowering technique was utilized adhering to the principles of ALARA. CT DOSE: 2201.42 mGy.cm FINDINGS: There may be a mild left flank contusion. No hemoperitoneum or pneumoperitoneum is noted. The heart is enlarged. Groundglass opacities within the lower lungs probably reflect atelectasis. There is no evidence for traumatic injury to the liver, spleen, adrenal glands, kidneys or pancreas. Several large calculi within the lower pole of the left kidney measure up to 3.1 cm. Multiple tiny right renal lesions are too small to characterize. There are no ureteral calculi. There is no hydronephrosis or hydroureter. Note is made of moderate enlargement of the prostate and a 2.4 cm irregular bladder calculus. A few renal cysts are noted. In addition, there is a 2.3 cm lesion within the midpole of the right kidney which demonstrates probable enhancement. There is no biliary or pancreatic ductal dilatation. There is no evidence for a bowel obstruction. Colonic diverticulosis is noted without evidence for acute diverticulitis. No acute fracture is identified within the visualized skeletal structures. IMPRESSION: 1. Possible small left flank contusion. No additional acute traumatic findings within the abdomen or pelvis. 2. 2.3 cm right renal lesion which demonstrates probable enhancement. This favors a solid renal lesion such as renal carcinoma. A complex cyst could appear similar. Nonemergent renal protocol MRI is recommended for further evaluation. 3. Multiple large left renal calculi. No ureteral calculi. 2.4 cm bladder calculus. Enlarged prostate. ACT 112: Positive. There are findings on this exam that require communication between the performing entity and the patient following Patient Test Result I nformation Act ([place] Act 112) guidelines. Electronically signed by: Juan Romero M.D. 07/20/2020 5:[address] 07/20/20 14:49 CT OF THE HEAD WITHOUT CONTRAST CLINICAL HISTORY: Fall. COMPARISON STUDY: No previous studies for comparison. TECHNIQUE: Helical axial images of the head were obtained without IV contrast. Automated exposure control was utilized for the study. A dose lowering technique was utilized adhering to the principles of ALARA. FINDINGS: No acute intracranial hemorrhage, midline shift or mass effect is present. The ventricular system is unremarkable. The basal cisterns are patent. No extra-axial collections are present. There are no findings to suggest acute dural sinus thrombosis or acute territorial infarct. No significant calvarial abnormalities are present. Visualized portions of the sinuses and mastoid air cells are clear. IMPRESSION: 1. No acute intracranial findings. 2. No calvarial fracture. ACT 112: Negative or not required by law. Electronically signed by: Juan Romero M.D. 07/20/2020 4:48 PM Medications Administered Discontinued Medications Sodium Chloride (Nss 1000ml) 1,000 mls @ 999 mls/hr IV .Q1H1M ONE Stop: 07/20/20 15:49 Last Admin: 07/20/20 15:10 Dose: 999 mls/hr Documented by: [id number] Ceftriaxone Sodium (Rocephin) 2,000 mg in 70 mls @ 140 mls/hr IV NOW STA Stop: 07/20/20 15:21 Last Admin: 07/20/20 15:28 Dose: 140 mls/hr Documented by: [id number] Ioversol (Optiray 300 100ml) 85 ml IV ONCE ONE Stop: 07/20/20 16:33 Last Admin: 07/20/20 16:32 Dose: 85 ml Documented by: [id number] ECG Rate (beats per minute): 104 Rhythm: atrial fibrillation COVID-19 Results Results COVID-19 Adm Lab Results: RBC 5.27 M/uL (4.7-6.1) 07/20/20 WBC 11.22 K/uL (4.8-10.8) H 07/20/20 Hgb 16.8 g/dL (14.0-18.0) 07/20/20 Hct 49.3 % (42-52) 07/20/20 Plt Count 98 K/uL (130-400) L 07/20/20 Neutrophils (%) (Auto) 68.4 % 07/20/20 Lymphocytes (%) (Auto) 12.5 % 07/20/20 Monocytes # (Auto) 2.08 K/uL (0.11-0.59) H 07/20/20 Eosinophils # (Auto) 0.01 K/uL (0-0.5) 07/20/20 Immature Granulocyte % (Auto) 0.4 % 07/20/20 Neutrophils # (Auto) 7.67 K/uL (1.4-6.5) H 07/20/20 Lymphocytes # (Auto) 1.40 K/uL (1.2-3.4) 07/20/20 Monocytes # (Auto) 2.08 K/uL (0.11-0.59) H 07/20/20 Eosinophils # (Auto) 0.01 K/uL (0-0.5) 07/20/20 Basophils # (Auto) 0.01 K/uL (0-0.2) 07/20/20 Immature Granulocyte # (Auto) 0.05 K/uL (0.00-0.02) H 07/20/20 Na 140 mmol/L (136-145) 07/20/20 K 4.0 mmol/L (3.5-5.1) 07/20/20 Cl 104 mmol/L (98-107) 07/20/20 CO2 28 mmol/L (21-32) 07/20/20 Anion Gap 8.0 (3-11) 07/20/20 BUN 25 mg/dl (7-18) H 07/20/20 Creatinine 1.13 mg/dl (0.6-1.4) 07/20/20 BUN/Creatinine Ratio 22.1 (10-20) H 07/20/20 Glucose Level 160 mg/dl (70-99) H 07/20/20 Ca 9.0 mg/dl (8.5-10.1) 07/20/20 Total Bilirubin 1.8 mg/dl (0.2-1) H 07/20/20 AST/SGOT 20 U/L (15-37) 07/20/20 ALT/SGPT 35 U/L (12-78) 07/20/20 Alkaline Phosphatase 38 U/L (45-117) L 07/20/20 Total Protein 7.4 gm/dl (6.4-8.2) 07/20/20 Albumin 3.3 gm/dl (3.4-5.0) L 07/20/20 Globulin 4.1 gm/dl (2.5-4.0) H 07/20/20 Albumin/Globulin Ratio 0.8 (0.9-2) L 07/20/20 Troponin I < 0.015 ng/ml (0-0.045) 07/20/20 CRP 15.00 mg/dl (0-0.29) H 07/20/20 Procalcitonin 0.64 ng/ml (0-0.5) H 07/20/20 PTT 37.3 Seconds (21.0-31.0) H 07/20/20 INR 2.0 (0.9-1.1) H 07/20/20 COVID-19 PCR NEGATIVE (Negative) 07/20/20 Influenza Virus Type A (PCR) Negative (Neg) 07/20/20 Influenza Virus Type B (PCR) Negative (Neg) 07/20/20 Chest X-Ray 07/20/20 Code Status & VTE Plan Code Status Full Code VTE Prophylaxis Plan VTE Prophylaxis will be ordered: No Supervising Physician Co-Signing Physician Notes Patient seen examined by me, care coordinated with Shalini Martinez PA-C, please see her note above for further detail. I edited the physical exam in the note above myself. Patient seen in emergency room, lying in bed, in no acute distress, however somewhat tachypneic while speaking. He is alert and oriented and answering questions appropriately. Reports feeling weak, having chills for several days. He was seen on July 17 by his PCP due to chills and dizziness. Fell at home, resulted in large ecchymosis on his left flank. Reports difficulty standing on his feet, and osteoarthritis. However he also has some pedal edema, and erythema which are fairly new. Right foot diabetic ulcer/callus noted as well. In the ED patient underwent imaging of his abdomen, concerning for renal calculi, abnormal renal lesion. Recommended MRI/renal imaging. ESR CRP also elevated, procalcitonin elevated, white blood cell count about 11,000 however patient is on chronic steroid therapy. Blood cultures are pending. Patient was started on IV Rocephin in the ED. We will obtain renal imaging/MRI to further evaluate, and will discuss results with urology. There is concern for possible osteomyelitis given significantly elevated ESR and CRP, will obtain CT foot, and depending on results we will further discuss with orthopedics. As there is concern for diabetic foot infection, will switch antibiotics to cefepime to cover for possible Pseudomonas, and will also add vancomycin for now. Follow blood cultures. Viraj Orta MD
[2020-07-20 18:26] LABS: Lyme Ab IgG w/WB Rflx Negative (Negative); Lyme Ab IgM w/WB Rflx Negative (Negative)
[2020-07-20] MEDS ORDERED: VANCOMYCIN CONSULT ACTIVE PRN (18:45)
[2020-07-20] MEDS ORDERED: VANCOMYCIN HCL 2,500 MG in SODIUM CHLORIDE 0.9% 500 ML IV STA (21:29)
[2020-07-20] MEDS: SODIUM CHLORIDE 0.9% 1000ML 1,000 ML IV SCH ×2 (22:14→23:20)
[2020-07-21] MEDS ORDERED: METOPROLOL TARTRATE 1 MG/ML VIAL IV PRN (02:24)
[2020-07-21] MEDS ORDERED: CEFEPIME CONSULT ACTIVE PRN (02:24)
[2020-07-21] MEDS ORDERED: ACETAMINOPHEN 325 MG TAB PO PRN (02:24)
[2020-07-21] MEDS ORDERED: ONDANSETRON INJ 2 MG/ML 2 ML VIAL IV PRN (02:24)
[2020-07-21] MEDS ORDERED: MAGNESIUM HYDROXIDE SUSP 30 ML UDC PO PRN (02:24)
[2020-07-21] MEDS ORDERED: ALUMINUM/MAGNESIUM SUSP 30 ML UDC PO PRN (02:24)
[2020-07-21] MEDS ORDERED: GLUCOSE 10 TABS/TUBE PO PRN (02:24)
[2020-07-21] MEDS ORDERED: GLUCAGON FOR INJ 1 MG VIAL SQ PRN (02:24)
[2020-07-21] MEDS ORDERED: POLYETHYLENE (MIRALAX) 17 GM PACK PO PRN (02:24)
[2020-07-21] MEDS ORDERED: CARBOHYDRATES FOR HYPOGLYCEMIA PO PRN (02:24)
[2020-07-21] MEDS ORDERED: GLUCOSE 40% GEL 15 GM TUBE PO PRN (02:24)
[2020-07-21] MEDS ORDERED: DICLOFENAC SOD 1% GEL 100 GM TUBE EXT PRN (02:24)
[2020-07-21] MEDS ORDERED: DEXTROSE 50% 50 ML SYRINGE IV PRN (02:24)
[2020-07-21 02:47] LABS: Bilirubin Direct 0.4 mg/dl (0-0.2)
[2020-07-21] MEDS ORDERED: traMADol HCL 50 MG TABLET PO PRN (03:04)
[2020-07-21] MEDS ORDERED: MoRPHine SULFATE 4 MG/ML 1 ML CARP\\VIAL IV PRN (03:04)
[2020-07-21] MEDS ORDERED: LORazepam 0.25 MG/0.5 ML VIAL IV PRN (03:10)
[2020-07-21] MEDS ORDERED: dexAMETHasone 4 MG in SYRINGE 0 ML IV ONE (03:30)
[2020-07-21] MEDS: CHOLECALCIFEROL 1,000 UNITS 25 MCG TAB PO SCH ×2 (03:50→20:32)
[2020-07-21] MEDS: INSULIN ASPART 100 UNITS/ML 3 ML PEN SC SCH ×5 (03:51→20:33)
[2020-07-21] MEDS: INSULIN GLARGINE SOLOSTAR 100 UNITS/ML 3 ML PEN SC SCH ×3 (03:52→20:33)
[2020-07-21] MEDS: BRIMONIDINE TARTRATE 0.2% 5ML OPB SCH ×3 (03:52→20:34)
[2020-07-21] MEDS: METOPROLOL TARTRATE 50 MG TAB PO SCH ×3 (03:52→20:45)
[2020-07-21] MEDS: ROSUVASTATIN CALCIUM 20 MG TAB PO SCH ×2 (03:53→20:32)
[2020-07-21] MEDS: CEFEPIME 2,000 MG in SYRINGE 0 ML IV SCH ×3 (03:57→20:31)
[2020-07-21] MEDS ORDERED: GADOBUTROL 65ML VIAL IV ONE (04:52)
[2020-07-21] MEDS ORDERED: SODIUM CHLORIDE 0.9% 500 ML IV ONE (05:34)
[2020-07-21] MEDS ORDERED: DIGOXIN 250 MCG in SYRINGE 9 ML IV STA (05:38)
--- NOTE | 2020-07-21 05:41 | Urology Consultation ---
Date of Consultation July 21, 2020 Assessment & Plan (1) Renal mass: Due to the patient's fever and chills he has been admitted by the hospitalist. There is concern that he is suffering from foot cellulitis. The box the form of cefepime been initiated. During patient's renal mass an MRI of the abdomen has been ordered with results pending. We will follow the results of these and determine if the patient requires any further diagnostic imaging as part of the evaluation of his right r enal mass. Additional recommendations will be forthcoming once the above-noted MRI is completed. (2) Bladder stones: Attending note: Agree with note as above. Discussed different concerns and issues. Patient's complicated medical history was reviewed and summarized as above. Patient is dealing with severe lower extremity edema/cellulitis with chronic decubitus/diabetic ulcers. Patient is on antibiotics. Has longtime steroid use. Patient has incidental findings of a small renal lesion. Had MRI and both images were reviewed interpreted by myself. Incidental lesion is approximately 2.3 cm. Would be classified as a small renal lesion. Different protocols for management of renal masses and lesions. With patient's multiple other comorbidities and significant other problems at this point is reasonable to continue with a active surveillance monitoring program for renal lesions under 3 cm. Patient also was found to have large left-sided stones/staghorn of the lower pole. Patient has an extremely large bladder stone with innumerable small bladder stones and large prostate projecting into bladder. Signs of chronic bladder outlet obstruction. At this point would recommend considering catheterization. Patient will likely need cystoscopy and stone treatments at some point. Will consider placing stent and utilizing multiple rounds of ESWL for the kidney stones on the left. Will likely need bladder stone extraction and possible TURP. All of this would be done likely electively in the outpatient scenario especially if patient is able to tolerate catheter and improve drainage. (3) Bladder outlet obstruction: (4) Staghorn kidney stones: History of Present Illness Reason for Consultation: Renal mass Attending Physician: Inocencio Orta MD History of Present Illness This is a 75-year-old male who presented to [facility] emergency department last evening. The patient says for approximately the past 4 to 5 days he has been having low-grade fevers as well as shakes and chills. He also feels as though he is somewhat lightheaded and unsteady on his feet and actually fell. When the patient fell he landed on his left side. Because of the symptoms he presented to the emergency department as noted above. In the emergency department patient had labs and imaging were independently reviewed by myself. CBC revealed his white blood cell count was 11.2. His hemoglobin and hematocrit were both within normal range and his platelet count was slightly low at 98,000. His INR was noted to be 2.0 his BUN and creatinine by chemistry profile were noted to be 25 and 1.1. Sodium and potassium were both within normal range. Urinalysis was not indicative of infection and Covid test was noted be negative. CT scan of the abdomen showed a 2.3 cm renal lesion that appeared solid in nature. Multiple left renal stones were noted as well as a bladder calculus. Chest x-ray showed no evidence of pneumonia. Head CT showed no evidence of stroke. A right foot x-ray showed some soft tissue swelling with no discrete evidence of osteomyelitis. An abdomen MRI has been ordered and is pending. We have been asked to see the patient due to his noted renal lesion. I did question patient about this and this is was unknown to him. He denies any weight loss. He denies any hematuria. Does note that he has urinary frequency and feels as though he does not empty his bladder fully. He denies any dysuria. He denies any flank pain. He denies any back pain. And he also notes that the force of his urine stream is quite weak at times. The patient is a former smoker and he is a retired office automation clerk. He is unsure if he has been exposed to any toxic chemicals or fumes from his occupation as an office automation clerk. Time my visit the patient was resting comfortably in bed in no distress. Allergies Allergy/AdvReac Type Severity Reaction Status Date / Time No Known Allergies Allergy Unverified 07/20/20 16:23 Home Medications Medication Instructions Recorded Confirmed Type allopurinol 450 mg PO DAILY 07/20/20 07/20/20 History brimonidine [Alphagan] 1 drp OPB BID 07/20/20 07/20/20 History cholecalciferol (vitamin D3) 25 mcg PO HS 07/20/20 07/20/20 History [Vitamin D3] diclofenac sodium 2 g TOPICAL QID PRN 07/20/20 07/20/20 History enalapril maleate 10 mg PO DAILY 07/20/20 07/20/20 History finasteride 5 mg PO DAILY 07/20/20 07/20/20 History metformin 500 mg PO DAILY 07/20/20 07/20/20 History metoprolol tartrate 50 mg PO BID 07/20/20 07/20/20 History multivitamin 1 tab PO DAILY 07/20/20 07/20/20 History prednisolone acetate [Pred Forte] 1 drp OPR DAILY 07/20/20 07/20/20 History prednisone 10 mg PO DAILY 07/20/20 07/20/20 History rosuvastatin 40 mg PO HS 07/20/20 07/20/20 History saw palmetto 0 mg PO DAILY 07/20/20 07/20/20 History silver sulfadiazine [Silvadene] 1 applic TOPICAL DAILY PRN 07/20/20 07/20/20 History warfarin 5 mg PO DAILY 07/20/20 07/20/20 History Patient History Medical History BPH (benign prostatic hyperplasia) Chronic atrial fibrillation CKD (chronic kidney disease) stage 3, GFR 30-59 ml/min GERD (gastroesophageal reflux disease) History of Meniere's disease HLA B27 (HLA B27 positive) HLD (hyperlipidemia) HTN (hypertension) buttermaker continuous churn current use of anticoagulant Long-term current use of steroids T2DM (type 2 diabetes mellitus) Surgical History History of cataract extraction History of knee replacement procedure of right knee History of prostate surgery Family History Mother Hypertension Father Myocardial infarction Coronary heart disease AAA (abdominal aortic aneurysm) Diabetes Social History Smoking Status: Former smoker Tobacco Type: Cigarettes packs per day: 1; Years Smoked: 25; Hx Alcohol Use: No Hx Substance Use: No Preferred Language: Danish Communication Ability: Effective Wellness Consultant Required: No Beliefs That Will Affect Care: None marital status: Current Living Situation: Spouse Other Information That Helps Us Care for You: No Feels Safe at Home: Yes Safety Concerns: Feels Safe At This Time Assistive Devices: Glasses Review of Systems Constitutional: + fever and + chills Eyes: no diplopia Ear, Nose, Mouth, Throat: no ear pain Respiratory: no cough and no dyspnea Cardiovascular: no chest pain Gastrointestinal: no abdominal pain, no nausea, no vomiting and no blood in stools Genitourinary: + urinary frequency and + urinary hesitancy; no dysuria, no hematuria and no flank pain Musculoskeletal: no back pain Integumentary: no rash Neurologic: no localized weakness Physical Exam Constitutional: well developed and well nourished; no acute distress Eyes: no conjunctival abnormality ENMT: Ears: no hearing impairment Neck: trachea midline Respiratory: normal respiratory effort, lungs clear to auscultation Cardiovascular: Rate/Rhythm: regular rate and regular rhythm Gastrointestinal (Abdomen): Percussion/Palpation: abdomen soft; abdomen nontender Musculoskeletal: No calf tenderness. Patient's feet were examined and he had some mild erythema of both feet. No open cuts or wounds on either feet. Skin: no rashes, warm and dry Neurologic: moves all extremities Psychiatric: A+Ox3, euthymic affect Genitourinary: no CVA tenderness Patient had a large ecchymosis noted on the left flank. Results & Data ([facility]) Vital Signs (Past 12 Hours) Vital Signs Temp Pulse Pulse Resp BP BP BP 07/21/20 05:22 118 H 16 82/56 L 88/58 L 07/21/20 02:46 36.9 C 120 H 22 139/90 07/21/20 02:25 113 H 07/21/20 01:54 109 H 16 104/81 07/21/20 01:00 16 112/66 07/21/20 00:45 18 90/54 L 07/21/20 00:00 110 H 20 122/84 07/20/20 23:30 117 H 20 128/79 07/20/20 23:00 117 H 20 112/81 07/20/20 22:11 116 H 108/77 07/20/20 22:01 07/20/20 21:59 105/66 07/20/20 21:58 105 H 07/20/20 21:01 124 H 114/96 07/20/20 20:49 107 H 19 82/62 L 07/20/20 20:30 110 H 22 88/64 L 07/20/20 20:17 108 H 24 04/25/21 20:16 104 H 16 100/61 07/20/20 20:15 110 H 22 07/20/20 19:48 113 H 24 86/49 L 07/20/20 19:30 07/20/20 19:00 Pulse Ox 07/21/20 05:22 07/21/20 02:46 95 07/21/20 02:25 07/21/20 01:54 94 07/21/20 01:00 94 07/21/20 00:45 93 07/21/20 00:00 95 07/20/20 23:30 92 07/20/20 23:00 95 07/20/20 22:11 96 07/20/20 22:01 96 07/20/20 21:59 90 07/20/20 21:58 96 07/20/20 21:01 07/20/20 20:49 94 07/20/20 20:30 07/20/20 20:17 91 07/20/20 20:16 93 07/20/20 20:15 07/20/20 19:48 92 07/20/20 19:30 95 07/20/20 19:00 91 PG Care Time/CCT Total # of Minutes Spent Total Time Spent with Patient: Total time spent is greater than 50% in coordination of care (as documented) at patient's floor/unit and/or counseling p atient: Coding Level of Care Code 15569 Inpt Consult Level 5 Diagnoses Renal mass N28.89 Bladder stones N21.0 Bladder outlet obstruction N32.0 Staghorn kidney stones N20.0
[2020-07-21 06:03] LABS: Hematocrit (blood only) 42.1 % (42-52); Hemoglobin 13.9 g/dL (14.0-18.0); Mean Corpuscular Volume 93.8 fL (80-100); Mean Platelet Volume 11.4 fL (7.4-10.4); Platelet Count 93 K/uL (130-400); RDW Coefficient of Variation 14.2 % (11.5-14.5); RDW Standard Deviation 48.9 fL (36.4-46.3); Red Blood Count 4.49 M/uL (4.7-6.1); White Blood Count 9.72 K/uL (4.8-10.8)
[2020-07-21 06:15] LABS: Albumin Level 2.5 gm/dl (3.4-5.0); BUN Creatinine Ratio 28.3 (10-20); Est GFR (African American) 90.5; Est GFR (Non-African American) 78.1; Potassium 3.5 mmol/L (3.5-5.1)
[2020-07-21] MEDS ORDERED: SODIUM CHLORIDE 0.9% 1000ML 1,000 ML IV SCH (06:30)
[2020-07-21 06:31] LABS: Albumin Globulin Ratio 0.7 (0.9-2); Basophils # (auto) 0.01 K/uL (0-0.2); Basophils % (auto) 0.1 %; Bilirubin,Total 1.2 mg/dl (0.2-1); C Reactive Protein 17.1 mg/dl (0-0.29); Eosinophils # (auto) 0.01 K/uL (0-0.5); Eosinophils % (auto) 0.1 %; Globulin 3.4 gm/dl (2.5-4.0); Immature Granulocytes # (auto) 0.05 K/uL (0.00-0.02); Immature Granulocytes % (auto) 0.5 %; Lymphocytes # (auto) 1.66 K/uL (1.2-3.4); Lymphocytes % (auto) 17.1 %; Monocytes % (auto) 13.4 %; Neutrophils # (auto) 6.69 K/uL (1.4-6.5); Neutrophils % (auto) 68.8 %; RBC Morphology Unremarkable; Total Protein 5.9 gm/dl (6.4-8.2)
[2020-07-21 06:34] LABS: INR 2.2 (0.9-1.1); Prothrombin Time 21.3 Seconds (9.0-12.0)
[2020-07-21 06:42] LABS: Estimated Average Glucose 151 mg/dl; Hemoglobin A1C 6.9 % (4.5-5.6)
[2020-07-21] MEDS ORDERED: POTASSIUM CHLORIDE 10 MEQ TABCR PO STA (06:56)
[2020-07-21] MEDS ORDERED: POTASSIUM CHLORIDE 40 MEQ in SODIUM CHLORIDE 0.9% 1000ML 1,000 ML IV ONE (06:57)
--- NOTE | 2020-07-21 07:19 | CT Scan Report ---
RIGHT FOOT CT CT DOSE: 180.34 mGy.cm HISTORY: R foot lateral wound, eval for osteomyelitis TECHNIQUE: Multiaxial CT images of the right foot were performed and reformatted in the sagittal and coronal plane without the use of contrast. A dose lowering technique was utilized adhering to the pr inciples of AYAKA. COMPARISON: None. FINDINGS: No fracture or dislocation. Severe osteoarthritis at the first MTP joint. Moderate osteoart hritis seen within the intertarsal joints. Large plantar heel spur. Small foci of subcutaneous gas se en within the plantar aspect of the lateral foot near the level of the fourth and fifth metatarsal he ads. This favors a small skin ulceration. There is no underlying bony destruction to suggest an osteo myelitis. Mild diffuse subcutaneous edema within the foot. No definite loculated fluid collections to suggest an abscess. This skin ulceration measures approximately 1 cm. IMPRESSION: 1. A 1 cm skin ulceration along the plantar aspect of the lateral forefoot near the heads of the four th and fifth metatarsals. 2. No underlying bony destruction to suggest osteomyelitis. 3. Moderate to severe osteoarthritis most pronounced at the first MTP joint. 4. No fractures. ACT 112: Negative or not required by law. Electronically signed by: Moses Michelle M.D. 07/21/2020 7:18 AM
--- NOTE | 2020-07-21 08:26 | XRay Report ---
XR chest 1V portable CLINICAL HISTORY: eval for pulm vasc emiliano COMPARISON STUDY: Chest radiograph July 20, 2020. FINDINGS: Lung volumes are at the lower limits of normal. There is no pneumothorax or pleural effusio n. There is persistent interstitial thickening. Cardiomegaly is unchanged. Patient is mildly rotated. IMPRESSION: 1. Persistent interstitial thickening. This favors pulmonary vascular congestion. 2. Cardiomegaly. ACT 112: Negative or not required by law. Electronically signed by: Juan Romero M.D. 07/21/2020 8:24 AM
--- NOTE | 2020-07-21 08:48 | Magnetic Resonance Report ---
MR abdomen wo/w con HISTORY: Abnormal abdomen and pelvis CT. Renal protocol, R renal solid lesion TECHNIQUE: Multiplanar multisequence MRI of the abdomen was performed both before and after the intra venous administration of 10.5 cc of Gadavist contrast to evaluate the kidneys. COMPARISON STUDY: Abdomen and pelvis CT 07/20/2020. FINDINGS: Mild motion artifact. The liver, spleen, and adrenal glands unremarkable. There is mild per ipancreatic edema. No retroperitoneal lymphadenopathy. No suspicious osseous lesions identified. The visualized loops of bowel show no wall thickening or obstruction. There is mild hepatic steatosis. Th ere is a 2.3 cm left renal cyst. There is a 1 cm exophytic cyst within the upper pole the right kidne y. There is mild bilateral perinephric edema. No hydronephrosis. There is 1.8 cm T2 hyperintense, T1 hypointense enhancing lesion within the posterior interpolar region of the right kidney best seen on axial postcontrast sequences image 43. Therefore, this consistent with a renal cell carcinoma until p roven otherwise. In addition, there is a 1 cm lesion within the upper pole the left kidney best seen on postcontrast sequence image 26 of 84. This demonstrates a small amount of T1 hyperintensity. There is questionable enhancement within this lesion. Therefore, this could represent a hemorrhagic/protei naceous cyst or an additional renal mass. This is difficult to characterize due to its small size in the motion artifact. IMPRESSION: 1. Confirmation of the 1.8 cm enhancing lesion within the posterior interpolar region of the right ki dney. This is consistent with a renal cell carcinoma until proven otherwise. 2. An additional 1 cm lesion within the upper pole of the left kidney. This is difficult to character ize due to its small size but could represent a hemorrhagic/proteinaceous cyst or an additional renal mass. Follow-up recommended to ensure resolution. ACT 112: Positive. There are findings on this exam that require communication between the performing entity and the patient following Patient Test Result Information Act ([place] Act 112) guidelines. Electronically signed by: Moses Michelle M.D. 07/21/2020 8:46 AM
[2020-07-21] MEDS: allopurinoL 300 MG TAB PO SCH (08:56)
[2020-07-21] MEDS: prednisoLONE acetate 1% OP SUSP 5 ML BTL OPR SCH (08:57)
[2020-07-21] MEDS: FINASTERIDE 5 MG TAB PO SCH (08:57)
[2020-07-21] MEDS: MULTIVITAMIN TAB PO SCH (08:57)
[2020-07-21] MEDS: VANCOMYCIN HCL 1,500 MG in SODIUM CHLORIDE 0.9% 500 ML IV SCH ×2 (08:59→20:31)
--- NOTE | 2020-07-21 09:16 | Pharmacy Report ---
Pharmacy Abx Dose Short Note - Date of Service July 21, 2020 - Assessment & Plan Assessment 75 year old M admitted last evening secondary to fever, chills and dizziness off/on x 5 days * Complaints of b/l foot pain. Noticing increased redness to R foot over the past few days. * Leukocytosis improved slightly (11.2 --> 9.7). Renal fxn improved as well (1.13 --> 0.96). * Started on vancomycin and cefepime empirically (48 hours stop date) for possible sepsis in setting of possible R foot cellulitis * Cultures are pending Plan Vancomycin * Loading Dose: 2500 mg (25 mg/kg) x 1 * Maintenance Dose: 1500 mg (15 mg/kg) IV every 12 hours * Goal AUC/VIDYA is 400 - 600 * AUC/VIDYA is the preferred PK/PD target for patient's on vancomycin * Will obtain a trough tomorrow prior to steady state to ensure patient is not accumulating drug Cefepime (Pharmacy Consulted) * 2000 mg IV every 8 hours - appropriate given possibility of DFI Pharmacy will continue to follow and will adjust dose/frequency as necessary. Thank you.
[2020-07-21 12:16] LABS: Appearance Urine Cloudy (Clear); Bacteria Urine Automated Negative (Negative); Bilirubin Urine Negative (Negative); Blood Urine 3+ (Negative); Color Urine Yellow; Epithelial Cell Urine Auto 20-30 /lpf (0-5); Glucose Urine UA Negative (Negative); Ketones Urine 1+ (Negative); Leukocyte Esterase Urine Negative (Negative); Nitrite Urine Negative (Negative); Protein Urine 1+ (Negative); RBC Urine Automated >30 /hpf (0-4); Specific Gravity Urine 1.027 (1.000-1.030); Urobilinogen Urine Negative (Negative); pH Urine 5.5 (4.5-7.5)
--- NOTE | 2020-07-21 12:48 | Hospitalist Progress Note ---
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 Sepsis Bacteremia: Positive cocci with clusters Source: Possible R foot cellulitis vs underlying OM in setting of diabetes, pt with callused ulceration to R lateral foot with extending erythema proximally, marked with skin marker We will continue with vancomycin and cefepime for now. Repeat blood cultures tomorrow morning. CT of the foot without any concerning osteomyelitis. Appreciate wound care input. We will also order transthoracic echo in the setting of possible staph. Patient was hypertensive overnight. Will continue with maintenance IV fluids for now. (4) Abnormal CT of the abdomen: (5) Asymptomatic microscopic hematuria: CT A.P: 2.3 cm right renal lesion which demonstrates probable enhancement. This favors a solid renal lesion such as renal carcinoma. A complex cyst could appear similar. Nonemergent renal protocol MRI is recommended for further evaluation. Multiple large left renal calculi. No ureteral calculi. 2.4 cm bladder calculus. Enlarged prostate. MRI Abdomen: 1. Confirmation of the 1.8 cm enhancing lesion within the posterior interpolar region of the right kidney. This is consistent with a renal cell carcinoma until proven otherwise. 2. An additional 1 cm lesion within the upper pole of the left kidney. Llarge left-sided stones/staghorn of the lower pole Appreciate Urology input. Plan to electively manage it as an outpatient. (6) Chronic atrial fibrillation: A. fib with RVR on admission; currently rate is controlled Likely in setting of underlying infection Continue metoprolol and warfarin INR therapeutic; today at 2.2 As needed IV Lopressor for heart rate greater than 110 (7) T2DM (type 2 diabetes mellitus): Controlled, last A1c 06/05/2020 7.3 Hold Metformin Lantus/NovoLog per protocol (8) HTN (hypertension): Continue metoprolol Continue holding enalapril in the setting of sepsis (9) Long-term current use of steroids: pt on chronic prednisone 2/2 to disseminated chorioretinitis C/W prednisone drops (10) DVT prophylaxis: Continue warfarin Dispo: med tele PCP: Pepe DNR/DNI Admission and Anticipated Discharge Date Admission Date: July 20, 2020 Subjective Patient is doing okay this morning. No new complaints. Denies any chest pain, shortness of breath, abdominal pain, diarrhea or dysuria. Review of Systems Review of Systems: All systems reviewed & are unremarkable except as noted in HPI & below Physical Exam Physical Exam: General: A&Ox3 HENT: NCAT, MMM, EOMI Eyes: PERRLA Neck: Supple, normal range of motion CVS: normal rate and rhythm Resp: b/l good breath sounds Abdomen: Soft, ND/NT, +BS Extremities: R foot erythema is improved, site is market, lateral aspect of the foot wound noted without any active discharge Neuro: face symmetric, strength grossly equal, no focal deficit Skin: warm and dry, no rashes/lesions/errythema MSK: normal ROM, no joint swelling/erythema Results & Data Results & Data ([facility]) Vital Signs (Past 12 Hours) Vital Signs Temp Pulse Pulse Resp BP BP BP 07/21/20 12:00 36.4 C L 85 22 110/73 07/21/20 09:47 91 H 07/21/20 06:53 37.0 C 102 H 20 118/69 07/21/20 05:58 108 H 07/21/20 05:22 118 H 16 82/56 L 88/58 L 07/21/20 02:46 36.9 C 120 H 22 139/90 07/21/20 02:25 113 H 07/21/20 01:54 109 H 16 104/81 07/21/20 01:00 16 112/66 07/21/20 00:45 18 90/54 L Pulse Ox 07/21/20 12:00 90 07/21/20 09:47 07/21/20 06:53 92 07/21/20 05:58 07/21/20 05:22 07/21/20 02:46 95 07/21/20 02:25 07/21/20 01:54 94 07/21/20 01:00 94 07/21/20 00:45 93
--- NOTE | 2020-07-21 14:16 | Electrocardiogram Report ---
Test Reason : Blood Pressure : / mmHG Vent. Rate : 104 BPM Atrial Rate : 192 BPM P-R Int : 000 ms QRS Dur : 074 ms QT Int : 316 ms P-R-T Axes : 000 -14 009 degrees QTc Int : 415 ms Atrial fibrillation with rapid ventricular response Abnormal ECG No previous ECGs available Confirmed by Keanu Bhagat ([id number]) on 07/21/2020 2:16:09 PM Referred By: ED Confirmed By:Keanu Bhagat
[2020-07-21] MEDS: WARFARIN SOD 5 MG TAB PO SCH (16:26)
[2020-07-22] MEDS: CEFEPIME 2,000 MG in SYRINGE 0 ML IV SCH (03:42)
[2020-07-22] MEDS ORDERED: VANCOMYCIN TROUGH ONE (08:30)
[2020-07-22] MEDS: INSULIN ASPART 100 UNITS/ML 3 ML PEN SC SCH ×4 (08:40→20:55)
[2020-07-22] MEDS: METOPROLOL TARTRATE 50 MG TAB PO SCH ×2 (08:41→20:52)
[2020-07-22] MEDS: MULTIVITAMIN TAB PO SCH (08:42)
[2020-07-22] MEDS: allopurinoL 300 MG TAB PO SCH (08:43)
[2020-07-22] MEDS: INSULIN GLARGINE SOLOSTAR 100 UNITS/ML 3 ML PEN SC SCH ×2 (08:45→20:54)
[2020-07-22] MEDS: BRIMONIDINE TARTRATE 0.2% 5ML OPB SCH ×2 (08:46→20:57)
[2020-07-22] MEDS: FINASTERIDE 5 MG TAB PO SCH (08:46)
[2020-07-22] MEDS: prednisoLONE acetate 1% OP SUSP 5 ML BTL OPR SCH (08:47)
[2020-07-22] MEDS: VANCOMYCIN HCL 1,500 MG in SODIUM CHLORIDE 0.9% 500 ML IV SCH ×2 (08:53→20:48)
[2020-07-22 09:30] LABS: Basophils # (auto) 0.01 K/uL (0-0.2); Basophils % (auto) 0.1 %; Hematocrit (blood only) 43.6 % (42-52); Hemoglobin 14.9 g/dL (14.0-18.0); Immature Granulocytes # (auto) 0.06 K/uL (0.00-0.02); Immature Granulocytes % (auto) 0.4 %; Mean Corpuscular Hemoglobin 31.9 pg (25-34); Mean Corpuscular Hgb Conc 34.2 g/dL (32-36); Mean Corpuscular Volume 93.4 fL (80-100); Mean Platelet Volume 12.2 fL (7.4-10.4); Monocytes % (auto) 4.8 %; Neutrophils # (auto) 12.21 K/uL (1.4-6.5); Neutrophils % (auto) 83.7 %; Platelet Count 139 K/uL (130-400); RDW Coefficient of Variation 14.3 % (11.5-14.5); RDW Standard Deviation 48.7 fL (36.4-46.3); Red Blood Count 4.67 M/uL (4.7-6.1); White Blood Count 14.58 K/uL (4.8-10.8)
--- NOTE | 2020-07-22 09:36 | Urology Progress Note ---
Date of Service July 22, 2020 Assessment & Plan (1) Renal mass: (2) Bladder outlet obstruction: 75 yo M with multiple comorbidities admitted for fever and cellulitis of foot; incidental renal mass, bladder stone, staghorn calculus. - Case reviewed with Dr. Morrison, on-call urologist - Afebrile, lab work reviewed - creatinine 0.96, WBC 14.58 - Recommend post void residual bladder scan, order placed - Encouraged by low PVR - 43 mL per nursing, continue to monitor - Reviewed with patient the plan for continued observation and imaging of renal mass < 3 cm - Discussed options for outpatient stone management once he improves from infection of his foot - Reviewed and discussed options for treatment of staghorn calculus, including referral for percutaneous nephrolithotomy - Discussed options for removal of bladder stone and TURP - Continue supportive care, antibiotics and management per primary team - Plan for outpatient follow-up with our service to discuss definitive stone management, surveillance - He is agreeable to the plan, all questions answered Thank you for allowing us to participate in the acute care of Mr. Hays. Please reconsult us with additional questions, concerns or changes in patient status. Admission and Anticipated Discharge Date Admission Date: July 20, 2020 Subjective Patient awake and sitting up in bed No acute issues overnight, no complaints at this time No flank, abdominal or suprapubic pain Voiding spontaneously via urinal or restroom, no dysuria or hematuria Feels he empties bladder +/- Reports he received MOM yesterday and had large BM Tolerating PO diet, no nausea or vomiting No fever or chills Reports he had a prostate surgery (?TURP) almost 10 years ago in [place] after multiple hospital presentations for AUR. No additional concerns today Chart review: Afebrile, creatinine 0.96 (07/21), WBC 14.58, Hgb 14.9, on IV Cefepime and Vancomycin for bacteremia, cellulitis Review of Systems Constitutional: as per Subjective / HPI Gastrointestinal: as per Subjective / HPI Genitourinary: + as per Subjective / HPI Physical Exam Constitutional: well developed, well nourished and + obese; no acute distress and not ill appearing Neck: normal visual inspection Respiratory: normal respiratory effort and able to speak in complete sentences; no respiratory distress and no labored breathing Cardiovascular: Extremities: no pedal edema Gastrointestinal (Abdomen): Inspection/Auscultation: abdomen normal to inspection; abdomen not distended Percussion/Palpation: abdomen soft; abdomen nontender and no guarding Musculoskeletal: Head/Neck/Chest: normocephalic and head atraumatic Boot on right foot Neurologic: moves all extremities and awake Psychiatric: Orientation: alert and oriented x 3 Genitourinary: no CVA tenderness Results & Data ([facility]) Vital Signs (Past 12 Hours) Vital Signs Temp Pulse Pulse Resp BP Pulse Ox 07/22/20 08:07 36.5 C 85 18 124/85 95 07/22/20 03:16 36.4 C L 97 H 18 109/71 93 07/22/20 00:02 95 H 07/21/20 22:45 36.5 C 89 17 109/70 95 PG Care Time/CCT Total # of Minutes Spent Total Time Spent with Patient: Total time spent is greater than 50% in coordination of care (as documented) at patient's floor/unit and/or counseling patient: Coding Level of Care Code 14891 Subseq Hosp Care Lvl 2 Diagnoses Renal mass N28.89 Bladder outlet obstruction N32.0
[2020-07-22 09:39] LABS: INR 3.1 (0.9-1.1); Prothrombin Time 28.4 Seconds (9.0-12.0)
[2020-07-22 10:04] LABS: Creatinine Clr Calc Pharmacy 72.4 ml/min; Est GFR (African American) 83.1; Est GFR (Non-African American) 71.7
[2020-07-22 10:10] LABS: Albumin Globulin Ratio 0.7 (0.9-2); Albumin Level 2.7 gm/dl (3.4-5.0); BUN Creatinine Ratio 34.4 (10-20); Bilirubin,Total 0.8 mg/dl (0.2-1); Calcium 8.7 mg/dl (8.5-10.1); Creatinine Clr Calc Pharmacy 73.1 ml/min; Est GFR (African American) 84.1; Est GFR (Non-African American) 72.6; Globulin 3.9 gm/dl (2.5-4.0); Potassium 4.3 mmol/L (3.5-5.1); Total Protein 6.6 gm/dl (6.4-8.2)
--- NOTE | 2020-07-22 10:41 | Pharmacy Report ---
Pharmacy Abx Dose Short Note - Date of Service July 22, 2020 - Assessment & Plan Assessment 75 year old M receiving vancomycin/cefepime for treatment of bacteremia/foot infection Day # 3 of antimicrobial therapy. Plan Vancomycin * Trough level came back therapeutic at ~16.7 mcg/ml (goal 15-20 mcg/ml for bacteremia). Level drawn slightly before steady state, so true level may be closer to ~20 mcg/ml * Blood cultures with staph species, with sensitivities pending. Repeat blood cultures pending. Echo done and negative for vegetations, CT of foot negative for osteo * Plan to continue same vancomycin dosing for now, may be able to deescalate once cultures finalize Cefepime - no change Pharmacy will continue to follow and will adjust dose/frequency as necessary. Thank you.
--- NOTE | 2020-07-22 11:22 | Hospitalist Progress Note ---
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 Sepsis Bacteremia: Positive cocci with clusters Source: Possible R foot cellulitis vs underlying OM in setting of diabetes, pt with callused ulceration to R lateral foot with extending erythema proximally, marked with skin marker Continue with vancomycin, discontinue cefepime today. Repeat blood cultures ordered today. CT of the foot without any concerning osteomyelitis. Transthoracic echo without any vegetations. Appreciate wound care input. Will consult Ortho for possible source control from the R foot. (4) Abnormal CT of the abdomen: (5) Asymptomatic microscopic hematuria: CT A.P: 2.3 cm right renal lesion which demonstrates probable enhancement. This favors a solid renal lesion such as renal carcinoma. A complex cyst could appear similar. Nonemergent renal protocol MRI is recommended for further evaluation. Multiple large left renal calculi. No ureteral calculi. 2.4 cm bladder calculus. Enlarged prostate. MRI Abdomen: 1. Confirmation of the 1.8 cm enhancing lesion within the posterior interpolar region of the right kidney. This is consistent with a renal cell carcinoma until proven otherwise. 2. An additional 1 cm lesion within the upper pole of the left kidney. Llarge left-sided stones/staghorn of the lower pole Appreciate Urology input. Plan to electively manage it as an outpatient. (6) Chronic atrial fibrillation: A. fib with RVR on admission; currently rate is controlled Likely in setting of underlying infection Continue metoprolol and warfarin INR therapeutic; today at 3.1. Remains on coumadin 5 mg daily. As needed IV Lopressor for heart rate greater than 110 (7) T2DM (type 2 diabetes mellitus): Controlled, last A1c 06/05/2020 7.3 Hold Metformin Lantus/NovoLog per protocol (8) HTN (hypertension): Continue metoprolol Continue holding enalapril in the setting of sepsis (9) Long-term current use of steroids: pt on chronic prednisone 2/2 to disseminated chorioretinitis C/W prednisone drops (10) DVT prophylaxis: Continue warfarin Dispo: med tele PCP: Pepe DNR/DNI Admission and Anticipated Discharge Date Admission Date: July 20, 2020 Subjective Patient is doing okay this morning. Hemodynamically he is doing fine. Rest of the review of system is negative. Review of Systems Review of Systems: All systems reviewed & are unremarkable except as noted in HPI & below Physical Exam Physical Exam: General: A&Ox3 HENT: NCAT, MMM, EOMI Eyes: PERRLA Neck: Supple, normal range of motion CVS: normal rate and rhythm Resp: b/l good breath sounds Abdomen: Soft, ND/NT, +BS Extremities: R foot erythema is improved, site is market, lateral aspect of the foot wound noted without any active discharge Neuro: face symmetric, strength grossly equal, no focal deficit Skin: warm and dry, no rashes/lesions/errythema MSK: normal ROM, no joint swelling/erythema Results & Data Results & Data ([facility]) Vital Signs (Past 12 Hours) Vital Signs Temp Pulse Pulse Resp BP Pulse Ox 07/22/20 11:11 36.3 C L 90 19 149/78 H 95 07/22/20 08:07 36.5 C 85 18 124/85 95 07/22/20 03:16 36.4 C L 97 H 18 109/71 93 07/22/20 00:02 95 H
--- NOTE | 2020-07-22 13:44 | Orthopedic Consultation ---
Date of Consultation July 22, 2020 Assessment & Plan (1) Diabetic ulcer of right foot: Supportive care at this time, agree with orthotic footwear, local wound care, continue with antibiotics per medical team, recommend outpatient follow-up with [facility] foot and ankle specialist and the patient can call to set up this appointment upon discharge, . If symptoms persist or worsen would recommend MRI of the right foot. Thank you for the consultation. (2) Cellulitis: Improved, continue antibiotics per medical team. History of Present Illness Reason for Consultation: Right foot diabetic callus/cellulitis Attending Physician: Neri Gonzales MD History of Present Illness The patient is a 75-year-old male who presented to [facility] secondary to increased weakness and right lower extremity erythema. Patient has history of diabetes with underlying neuropathy. Patient reports callus on right foot for" several weeks", unsure if it has been there for months or not. Does not see anybody for his right foot. Reports he did try to be seen at [facility] per podiatry was not able to accommodate him. Patient was admitted for further evaluation and treatment for this problem. Patient reports that his swelling and redness to his right lower extremity is improved since admission. Denies any trauma to his right lower extremity. Denies F/C/N/V/SOB/CP. Allergies Allergy/AdvReac Type Severity Reaction Status Date / Time No Known Allergies Allergy Unverified 07/20/20 16:23 Home Medications Medication Instructions Recorded Confirmed Type allopurinol 450 mg PO DAILY 07/20/20 07/20/20 History brimonidine [Alphagan] 1 drp OPB BID 07/20/20 07/20/20 History cholecalciferol (vitamin D3) 25 mcg PO HS 07/20/20 07/20/20 History [Vitamin D3] diclofenac sodium 2 g TOPICAL QID PRN 07/20/20 07/20/20 History enalapril maleate 10 mg PO DAILY 07/20/20 07/20/20 History finasteride 5 mg PO DAILY 07/20/20 07/20/20 History metformin 500 mg PO DAILY 07/20/20 07/20/20 History metoprolol tartrate 50 mg PO BID 07/20/20 07/20/20 History multivitamin 1 tab PO DAILY 07/20/20 07/20/20 History prednisolone acetate [Pred Forte] 1 drp OPR DAILY 07/20/20 07/20/20 History prednisone 10 mg PO DAILY 07/20/20 07/20/20 History rosuvastatin 40 mg PO HS 07/20/20 07/20/20 History saw palmetto 0 mg PO DAILY 07/20/20 07/20/20 History silver sulfadiazine [Silvadene] 1 applic TOPICAL DAILY PRN 07/20/20 07/20/20 History warfarin 5 mg PO DAILY 07/20/20 07/20/20 History Patient History Medical History BPH (benign prostatic hyperplasia) Chronic atrial fibrillation CKD (chronic kidney disease) stage 3, GFR 30-59 ml/min GERD (gastroesophageal reflux disease) History of Meniere's disease HLA B27 (HLA B27 positive) HLD (hyperlipidemia) HTN (hypertension) [place] agent current use of anticoagulant Long-term current use of steroids T2DM (type 2 diabetes mellitus) Surgical History History of cataract extraction History of knee replacement procedure of right knee History of prostate surgery Family History Mother Hypertension Father Myocardial infarction Coronary heart disease AAA (abdominal aortic aneurysm) Diabetes Social History Smoking Status: Former smoker Tobacco Type: Cigarettes packs per day: 1; Years Smoked: 25; Hx Alcohol Use: No Hx Substance Use: No Preferred Language: Danish Communication Ability: Effective Network Internship Required: No Beliefs That Will Affect Care: None marital status: Current Living Situation: Spouse Other Information That Helps Us Care for You: No Feels Safe at Home: Yes Safety Concerns: Feels Safe At This Time Assistive Devices: None Review of Systems Review of Systems: All systems reviewed & are unremarkable except as noted in HPI & below Constitutional: as per Subjective / HPI Physical Exam Physical Exam: Right lower extremity is neurovascular sensory intact, neuropathy at baseline with decreased sensation, 1 x 1 cm callus over the lateral fifth metatarsal head, 1 x 1 cm callus plantar metatarsal head without disruption of the skin, no drainage. No erythema. Constitutional: WD/WN, vitals as above Results & Data ([facility]) Vital Signs (Past 12 Hours) Vital Signs Temp Pulse Resp BP Pulse Ox 07/22/20 11:11 36.3 C L 90 19 149/78 H 95 07/22/20 08:07 36.5 C 85 18 124/85 95 07/22/20 03:16 36.4 C L 97 H 18 109/71 93 Diagnostic Findings RIGHT FOOT CT CT DOSE: 180.34 mGy.cm HISTORY: R foot lateral wound, eval for osteomyelitis TECHNIQUE: Multiaxial CT images of the right foot were performed and reformatted in the sagittal and coronal plane without the use of contrast. A dose lowering technique was utilized adhering to the principles of ALARA. COMPARISON: None. FINDINGS: No fracture or dislocation. Severe osteoarthritis at the first MTP joint. Moderate osteoarthritis seen within the intertarsal joints. Large plantar heel spur. Small foci of subcutaneous gas seen within the plantar aspect of the lateral foot near the level of the fourth and fifth metatarsal heads. This favors a small skin ulceration. There is no underlying bony destruction to suggest an osteomyelitis. Mild diffuse subcutaneous edema within the foot. No definite loculated fluid collections to suggest an abscess. This skin ulceration measures approximately 1 cm. IMPRESSION: 1. A 1 cm skin ulceration along the plantar aspect of the lateral forefoot near the heads of the fourth and fifth metatarsals. 2. No underlying bony destruction to suggest osteomyelitis. 3. Moderate to severe osteoarthritis most pronounced at the first MTP joint. 4. No fractures. (1) Cellulitis Site of cellulitis: unspecified site Qualified Code(s): L03.90 - Cellulitis, unspecified
[2020-07-22] MEDS: WARFARIN SOD 5 MG TAB PO SCH (17:14)
[2020-07-22] MEDS: ROSUVASTATIN CALCIUM 20 MG TAB PO SCH (20:52)
[2020-07-22] MEDS: CHOLECALCIFEROL 1,000 UNITS 25 MCG TAB PO SCH (20:52)
[2020-07-23 06:43] LABS: INR 4.3 (0.9-1.1); Prothrombin Time 38.8 Seconds (9.0-12.0)
[2020-07-23 06:48] LABS: Creatinine Clr Calc Pharmacy 68.7 ml/min; Est GFR (African American) 79.4; Est GFR (Non-African American) 68.5
[2020-07-23] MEDS: WARFARIN SOD 5 MG TAB PO SCH (06:54)
[2020-07-23] MEDS: INSULIN ASPART 100 UNITS/ML 3 ML PEN SC SCH ×4 (08:18→20:27)
[2020-07-23] MEDS: INSULIN GLARGINE SOLOSTAR 100 UNITS/ML 3 ML PEN SC SCH ×2 (08:19→20:26)
[2020-07-23] MEDS: prednisoLONE acetate 1% OP SUSP 5 ML BTL OPR SCH (08:20)
[2020-07-23] MEDS: VANCOMYCIN HCL 1,500 MG in SODIUM CHLORIDE 0.9% 500 ML IV SCH ×2 (08:20→20:32)
[2020-07-23] MEDS: BRIMONIDINE TARTRATE 0.2% 5ML OPB SCH ×2 (08:21→20:25)
[2020-07-23] MEDS: allopurinoL 300 MG TAB PO SCH (08:21)
[2020-07-23] MEDS: METOPROLOL TARTRATE 50 MG TAB PO SCH ×2 (08:22→20:24)
[2020-07-23] MEDS: FINASTERIDE 5 MG TAB PO SCH (08:22)
[2020-07-23] MEDS: MULTIVITAMIN TAB PO SCH (08:22)
--- NOTE | 2020-07-23 16:05 | Hospitalist Progress Note ---
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 Sepsis Bacteremia: Positive cocci with clusters Source: Possible R foot cellulitis vs underlying OM in setting of diabetes, pt with callused ulceration to R lateral foot with extending erythema proximally, marked with skin marker Pain is continued with vancomycin Wound culture ordered-report pending CT of the foot without any concerning osteomyelitis. Transthoracic echo without any vegetations. ID consult will be requested recommendation of antibiotic and duration of treatment Appreciate wound care input. (4) Abnormal CT of the abdomen: (5) Asymptomatic microscopic hematuria: CT A.P: 2.3 cm right renal lesion which demonstrates probable enhancement. This favors a solid renal lesion such as renal carcinoma. A complex cyst could appear similar. Nonemergent renal protocol MRI is recommended for further evaluation. Multiple large left renal calculi. No ureteral calculi. 2.4 cm bladder calculus. Enlarged prostate. MRI Abdomen: 1. Confirmation of the 1.8 cm enhancing lesion within the posterior interpolar region of the right kidney. This is consistent with a renal cell carcinoma until proven otherwise. 2. An additional 1 cm lesion within the upper pole of the left kidney. Patient follow-up with urology large left-sided stones/staghorn of the lower pole Not have any flank pain, no symptoms Appreciate Urology input. Plan to electively manage it as an outpatient. (6) Chronic atrial fibrillation: A. fib with RVR on admission; currently rate is controlled Likely in setting of underlying infection Continue metoprolol and warfarin Monitor INR (7) T2DM (type 2 diabetes mellitus): Controlled, last A1c 06/05/2020 7.3 Hold Metformin during hospital stay Lantus/NovoLog per protocol (8) HTN (hypertension): Continue metoprolol (9) Long-term current use of steroids: pt on chronic prednisone 2/2 to disseminated chorioretinitis C/W prednisone drops (10) DVT prophylaxis: Continue warfarin Dispo: med tele PCP: Damaske DNR/DNI Disposition: Expected to be discharged home when medically stable Admission and Anticipated Discharge Date Admission Date: July 20, 2020 Subjective Patient sitting up on bed, denies of any discomfort, no abdominal pain, no nausea vomiting or fever Pain or discomfort on right foot Wants to know when he can be discharged home Review of Systems Review of Systems: All systems reviewed & are unremarkable except as noted in Subjective Physical Exam Physical Exam: Physical exam: General: No acute distress, alert awake oriented x3 HEENT: PERRLA, EOMI, Heart: Regular S1-S2, no carotid bruit, no JVD, no lower extremity edema Lungs: Clear to auscultate, no wheeze or rales Abdomen: Soft nontender, no organomegaly Extremity: Right foot wound, bandage present Neuro: No focal neurological deficit normal speech, normal visual field, Motor strength : normal both upper and lower extremity, sensation intact Psych: Alert awake oriented x3, normal affect Results & Data Results & Data ([facility]) Vital Signs (Past 12 Hours) Vital Signs Temp Pulse Resp BP Pulse Ox 07/23/20 15:25 36.6 C 79 18 135/88 94 07/23/20 11:17 36.5 C 84 18 116/74 94 07/23/20 07:26 36.5 C 77 18 153/82 H 94
[2020-07-23] MEDS: ROSUVASTATIN CALCIUM 20 MG TAB PO SCH (20:24)
[2020-07-23] MEDS: CHOLECALCIFEROL 1,000 UNITS 25 MCG TAB PO SCH (20:25)
[2020-07-24] MEDS: INSULIN ASPART 100 UNITS/ML 3 ML PEN SC SCH ×4 (08:20→20:22)
[2020-07-24] MEDS: BRIMONIDINE TARTRATE 0.2% 5ML OPB SCH ×2 (08:20→20:20)
[2020-07-24] MEDS: prednisoLONE acetate 1% OP SUSP 5 ML BTL OPR SCH (08:20)
[2020-07-24] MEDS: allopurinoL 300 MG TAB PO SCH (08:21)
[2020-07-24] MEDS: MULTIVITAMIN TAB PO SCH (08:21)
[2020-07-24] MEDS: METOPROLOL TARTRATE 50 MG TAB PO SCH ×2 (08:21→20:19)
[2020-07-24] MEDS: FINASTERIDE 5 MG TAB PO SCH (08:21)
[2020-07-24] MEDS: INSULIN GLARGINE SOLOSTAR 100 UNITS/ML 3 ML PEN SC SCH ×2 (08:22→20:21)
[2020-07-24] MEDS ORDERED: VANCOMYCIN TROUGH ONE (08:30)
[2020-07-24 08:55] LABS: INR 3.6 (0.9-1.1); Prothrombin Time 33.4 Seconds (9.0-12.0)
[2020-07-24 09:01] LABS: Creatinine Clr Calc Pharmacy 68.1 ml/min; Est GFR (African American) 78.5; Est GFR (Non-African American) 67.7
[2020-07-24] MEDS: VANCOMYCIN HCL 1,500 MG in SODIUM CHLORIDE 0.9% 500 ML IV SCH (09:12)
[2020-07-24] MEDS: ceFAZolin 2000MG 2,000 MG/15 ML SYR IV SCH ×2 (14:38→20:16)
--- NOTE | 2020-07-24 15:27 | Hospitalist Progress Note ---
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 Sepsis Bacteremia: Positive cocci with clusters/coag negative staph MSSA Source: Possible R foot cellulitis vs underlying OM in setting of diabetes, p CT of the foot without any concerning osteomyelitis. Transthoracic echo without any vegetations. Repeat blood culture shows no growth, Antibiotic changed to IV Ancef Wound culture shows normal paul ID consult will be requested recommendation of antibiotic and duration of treatment Appreciate wound care input. (4) Abnormal CT of the abdomen: (5) Asymptomatic microscopic hematuria: CT A.P: 2.3 cm right renal lesion which demonstrates probable enhancement. This favors a solid renal lesion such as renal carcinoma. A complex cyst could appear similar. Nonemergent renal protocol MRI is recommended for further evaluation. Multiple large left renal calculi. No ureteral calculi. 2.4 cm bladder calculus. Enlarged prostate. MRI Abdomen: 1. Confirmation of the 1.8 cm enhancing lesion within the posterior interpolar region of the right kidney. This is consistent with a renal cell carcinoma until proven otherwise. 2. An additional 1 cm lesion within the upper pole of the left kidney. out Patient follow-up with urology large left-sided stones/staghorn of the lower pole Not have any flank pain, no symptoms Appreciate Urology input. Plan to electively manage it as an outpatient. (6) Chronic atrial fibrillation: A. fib with RVR on admission; currently rate is controlled Likely in setting of underlying infection Continue metoprolol and warfarin Coumadin on hold for elevated INR (7) T2DM (type 2 diabetes mellitus): Controlled, last A1c 06/05/2020 7.3 Hold Metformin during hospital stay Lantus/NovoLog per protocol (8) HTN (hypertension): Continue metoprolol (9) Long-term current use of steroids: pt on chronic prednisone 2/2 to disseminated chorioretinitis Continue prednisone drops (10) DVT prophylaxis: warfarin PCP: Pepe DNR/DNI Disposition: Tentative discharge for tomorrow after antibiotic regimen established Admission and Anticipated Discharge Date Admission Date: July 20, 2020 Subjective Patient has been afebrile, no pain or discomfort on right foot, No complaint of chest pain or shortness of breath [facility] ID consult still pending, Patient appears to be frustrated not able to go home today Review of Systems Review of Systems: All systems reviewed & are unremarkable except as noted in Subjective Physical Exam Physical Exam: Physical exam: General: No acute distress, alert awake oriented x3 HEENT: PERRLA, EOMI, Heart: Regular S1-S2, no carotid bruit, no JVD, no lower extremity edema Lungs: Clear to auscultate, no wheeze or rales Abdomen: Soft nontender, no organomegaly Extremity: Right foot wound, bandage present Neuro: No focal neurological deficit normal speech, normal visual field, Motor strength : normal both upper and lower extremity, sensation intact Psych: Alert awake oriented x3, normal affect Results & Data Results & Data ([facility]) Vital Signs (Past 12 Hours) Vital Signs Temp Pulse Pulse Pulse Pulse Resp BP 07/24/20 15:21 36.8 C 81 18 07/24/20 15:15 94 H 07/24/20 11:45 36.4 C L 88 18 07/24/20 10:04 07/24/20 07:30 37.3 C 92 H 20 132/77 07/24/20 04:17 36.9 C 91 H 20 106/78 BP Pulse Ox Pulse Ox 07/24/20 15:21 122/76 94 07/24/20 15:15 07/24/20 11:45 129/85 94 07/24/20 10:04 98 07/24/20 07:30 93 07/24/20 04:17 94
[2020-07-24] MEDS: CHOLECALCIFEROL 1,000 UNITS 25 MCG TAB PO SCH (20:19)
[2020-07-24] MEDS: ROSUVASTATIN CALCIUM 20 MG TAB PO SCH (20:20)
[2020-07-25] MEDS: ceFAZolin 2000MG 2,000 MG/15 ML SYR IV SCH ×4 (01:47→17:43)
[2020-07-25] MEDS ORDERED: VANCOMYCIN HCL 1,250 MG in SODIUM CHLORIDE 0.9% 250 ML IV SCH (03:00)
[2020-07-25 06:35] LABS: Creatinine Clr Calc Pharmacy 59.2 ml/min; Est GFR (African American) 68.4
[2020-07-25] MEDS: FINASTERIDE 5 MG TAB PO SCH (08:39)
[2020-07-25] MEDS: allopurinoL 300 MG TAB PO SCH (08:40)
[2020-07-25] MEDS: MULTIVITAMIN TAB PO SCH (08:41)
[2020-07-25] MEDS: prednisoLONE acetate 1% OP SUSP 5 ML BTL OPR SCH (08:41)
[2020-07-25] MEDS: BRIMONIDINE TARTRATE 0.2% 5ML OPB SCH (08:42)
[2020-07-25] MEDS: INSULIN ASPART 100 UNITS/ML 3 ML PEN SC SCH ×3 (08:44→17:19)
[2020-07-25] MEDS: INSULIN GLARGINE SOLOSTAR 100 UNITS/ML 3 ML PEN SC SCH (08:45)
[2020-07-25] MEDS: METOPROLOL TARTRATE 50 MG TAB PO SCH (09:18)
--- NOTE | 2020-07-25 10:59 | Hospitalist Progress Note ---
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 Sepsis Bacteremia: Positive cocci with clusters/coag negative staph MSSA Source: Possible R foot cellulitis setting of diabetes CT of the foot no evidence of osteomyelitis Has been symptomatic with no fever pain or foot pain Vitals been stable Transthoracic echo without any vegetations. Repeat blood culture shows no growth, Antibiotic changed to IV Ancef Wound culture shows normal paul ID consult will be requested recommendation of antibiotic and duration of treatment Plan to discharge home later today with antibiotic, may need IV Ancef 4-6 weeks, will update case management (4) Abnormal CT of the abdomen: (5) Asymptomatic microscopic hematuria: CT of abdomen pelvis: 2.3 cm right renal lesion which demonstrates probable enhancement. This favors a solid renal lesion such as renal carcinoma. A complex cyst could appear similar. Nonemergent renal protocol MRI is recommended for further evaluation. Multiple large left renal calculi. No ureteral calculi. 2.4 cm bladder calculus. Enlarged prostate. MRI Abdomen: 1. Confirmation of the 1.8 cm enhancing lesion within the posterior interpolar region of the right kidney. This is consistent with a renal cell carcinoma until proven otherwise. 2. An additional 1 cm lesion within the upper pole of the left kidney . out Patient follow-up with urology large left-sided stones/staghorn of the lower pole Not have any flank pain, no symptoms Appreciate Urology input. Plan to electively manage it as an outpatient. (6) Chronic atrial fibrillation: A. fib with RVR on admission; currently rate is controlled Likely in setting of underlying infection Continue metoprolol and warfarin Coumadin on hold for elevated INR (7) T2DM (type 2 diabetes mellitus): Controlled, last A1c 06/05/2020 7.3 Hold Metformin during hospital stay Lantus/NovoLog per protocol (8) HTN (hypertension): Continue metoprolol (9) Long-term current use of steroids: pt on chronic prednisone 2/2 to disseminated chorioretinitis Continue prednisone drops (10) DVT prophylaxis: warfarin PCP: Pepe DNR/DNI Disposition: Plan for discharge home today Admission and Anticipated Discharge Date Admission Date: July 20, 2020 Subjective Patient reports feeling absolutely fine, no fever chills for last several days, no pain or discomfort Pain or discomfort on right foot, Tolerating IV antibiotic well Very eager to be discharged home Review of Systems Review of Systems: All systems reviewed & are unremarkable except as noted in Subjective Physical Exam Physical Exam: Physical exam: General: No acute distress, alert awake oriented x3 HEENT: PERRLA, EOMI, Heart: Regular S1-S2, no carotid bruit, no JVD, no lower extremity edema Lungs: Clear to auscultate, no wheeze or rales Abdomen: Soft nontender, no organomegaly Extremity: Right foot wound, bandage present Neuro: No focal neurological deficit normal speech, normal visual field, Motor strength : normal both upper and lower extremity, sensation intact Psych: Alert awake oriented x3, normal affect Results & Data Results & Data ([facility]) Vital Signs (Past 12 Hours) Vital Signs Temp Pulse Resp BP Pulse Ox 07/25/20 07:00 37.0 C 95 H 20 118/76 95
--- NOTE | 2020-07-25 12:49 | Communication Note ---
Date of Service: July 25, 2020 Patient will be discharged home today with IV Ancef for 4 weeks Spoke with patient's , comfortable with giving every 6 hours IV antibiotic. US guided IV line will be placed pt will be discharged home later today home health will be in tomorrow morning Emily Marlow MD
--- NOTE | 2020-07-25 16:14 | Discharge Summary ---
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 Sx would occur at night and in a.m. would resolve. Sx initially started on Tuesday night. He developed fever of low 100 and chills. Sx resolved and he was okay on and Tuesday. He tried motrin with mild relief. This afternoon he had an fever 103. He complains of b/l feet pain, difficulty walk, lesion on R lateral foot, redness to foot, dizziness and generalized week. He has been having difficulty with balance. 5 days ago he fell in the bedroom into the window and developed bruising to L lower back. He got out of bed and couldn't stay steady. at bedside noticed increasing redness to right foot the last 2 days. He denies any n/v/d, abdominal pain, chest pain, sob, cough, URI sx, dysuria, increased urgency or frequency with urination, hematuria, melena, hematochezia and diarrhea. He has osteoarthritis and hammer toes and achilles tendinitis so his feet always hurt. Over the last 2 days the pain has worsened. He has been compliant with medications. states BP has been running on lower side past few weeks. In ED patient made hemodynamically stable although mildly tachycardic. Work-up revealed elevated WBC 11.22k, thrombocytopenia 98, INR 2.0, ESR 42, CRP 15, BUN 25, creatinine 1.13 1.8-1.64. His urinalysis was negative for UTI but was positive for laparoscopic hematuria. His Lyme titer was negative and Anaplasma smear negative. Head CT was without acute abnormality. CT abdomen pelvis revealed small left lung contusion, 2.3 cm right renal lesion demonstrating peripheral enhancement favoring a solid renal lesion such as renal carcinoma. Complex cyst could appear similar. Nonemergent renal protocol MRI recommended. Multiple large left renal calculi. No ureteral calculi. 2.4 cm bladder calculus. In ED patient received 1 L of IV fluid as well as 2 g IV Rocephin due to concern for underlying infection of unknown etiology. Principal Diagnosis Diabetic ulcer of right foot Gram-positive bacteremia Discharge Data Allergies Allergy/AdvReac Type Severity Reaction Status Date / Time No Known Allergies Allergy Unverified 07/20/20 16:23 Consultations 07/20/20 17:36 ED Decision to Admit Stat 07/21/20 02:24 Consult Urology Routine 07/22/20 11:58 Consult Orthopedic Surgery Routine 07/23/20 16:20 Consult Infectious Diseases Routine Ordered Studies 07/20/20 14:49 CT abd pelvis IV con only Stat CT head/brain wo con Stat 07/20/20 18:39 CT foot RT wo con Urgent 07/21/20 02:24 MR abdomen wo/w con Routine Hospital Course (1) Fever: (2) Cellulitis of right foot: (3) Diabetic ulcer of right foot: This is a 75-year-old male who has significant past medical history of chronic atrial fibrillation on Coumadin, T2DM, HTN, HLD, GERD, BPH, glaucoma, 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 Sepsis Bacteremia: Positive cocci with clusters/coag negative staph MSSA sepsis has resolved Source: Possible R foot cellulitis setting of diabetes CT of the foot no evidence of osteomyelitis Has been symptomatic with no fever pain or foot pain Vitals been stable Transthoracic echo without any vegetations. Repeat blood culture shows no growth, Antibiotic changed to IV Ancef Wound culture shows normal paul ID consult appreciated Plan to discharge home later today with IV Ancef 4 weeks, will update case management (4) Abnormal CT of the abdomen: (5) Asymptomatic microscopic hematuria: CT of abdomen pelvis: 2.3 cm right renal lesion which demonstrates probable enhancement. This favors a solid renal lesion such as renal carcinoma. A complex cyst could appear similar. Nonemergent renal protocol MRI is recommended for further evaluation. Multiple large left renal calculi. No ureteral calculi. 2.4 cm bladder calculus. Enlarged prostate. MRI Abdomen: 1. Confirmation of the 1.8 cm enhancing lesion within the posterior interpolar region of the right kidney. This is consistent with a renal cell carcinoma until proven otherwise. 2. An additional 1 cm lesion within the upper pole of the left kidney . out Patient follow-up with urology large left-sided stones/staghorn of the lower pole Not have any flank pain, no symptoms Appreciate Urology input. Plan to electively manage it as an outpatient. (6) Chronic atrial fibrillation: A. fib with RVR on admission; currently rate is controlled Likely in setting of underlying infection Continue metoprolol and warfarin (7) T2DM (type 2 diabetes mellitus): Controlled, last A1c 06/05/2020 7.3 Hold Metformin during hospital stay Lantus/NovoLog per protocol (8) HTN (hypertension): Continue metoprolol (9) Long-term current use of steroids: pt on chronic prednisone 2/2 to disseminated chorioretinitis Continue prednisone drops (10) DVT prophylaxis: warfarin PCP: Pepe DNR/DNI Disposition: Plan for discharge home today Total Time Total Time Spent Total Time Spent (In Minutes): 35 mins Total Time Includes: Examination of the Patient, Discharge Planning and Medica tion Reconciliation Discharge Plan Discharge Items Patient Disposition: Home - Self-Care Reason For Visit: POSSIBLE SEPSIS Discharge Diagnosis: Diabetic ulcer of right foot Gram-positive bacteremia Activity: Per Instructions section Non-emergency contact: Primary Care Provider Call non-emergency contact if: you have any medication questions Follow-up/Referrals: Elieser Gonzales DO [Surgeon] - J Luis Cantu MD [Primary Care Provider] - (Hospital follow up in a week ) Diet: Heart Healthy Addtl Attending Provider Instructions: You are discharged home with IV antibiotic Ancef 2 gm every 6 hrs for 4 weeks , special IV line is placed for antibiotics at home. IV line will be discontinued by home health nurse once antibiotic course is completed FOLLOW UP WITH UROLOGY IN [place] FOR RIGHT RENAL MASS Please take all medications as instructed on discharge list below. It is recommended that you follow-up with your primary care physician within 1-2 weeks of hospital discharge to ensure you are still doing well. Please call if you have any questions or problems. You can reach a [facility] hospitalist on duty at [facility] 24 hours a day by calling [phone] PLEASE TAKE PROBIOTICS ( OVER THE COUNTER ) WHILE TAKING ANTIBIOTICS TO PREVENT DIARRHEA /LOOSE STOOL Addtl [employer] Provider Instructions: please use orthotic footwear with ambulation weight bearing as tolerated outpatient follow-up with [facility] foot and ankle specialist please call to set up this appointment , . Pending Studies at Discharge: No Stand-Alone Forms: My [facility], Smoking Cessation Medications and DC Order Prescriptions: Continued allopurinol 300 mg tablet 450 mg PO DAILY RF: 0 multivitamin Tablet 1 tab PO DAILY RF: 0 saw palmetto 80 mg Capsule 0 mg PO DAILY RF: 0 silver sulfadiazine [Silvadene] 1 % Cream 1 applic TOPICAL DAILY PRN (Reason: ..) RF: 0 prednisone 10 mg tablet 10 mg PO DAILY RF: 0 enalapril maleate 10 mg tablet 10 mg PO DAILY RF: 0 prednisolone acetate [Pred Forte] 1 % Drops,Suspension 1 drp OPR DAILY RF: 0 warfarin 5 mg tablet 5 mg PO DAILY RF: 0 brimonidine 0.2 % Drops 1 drp OPB BID RF: 0 metoprolol tartrate 50 mg tablet 50 mg PO BID RF: 0 metformin 500 mg tablet extended release 24 hr 500 mg PO DAILY RF: 0 finasteride 5 mg tablet 5 mg PO DAILY RF: 0 rosuvastatin 40 mg tablet 40 mg PO HS RF: 0 cholecalciferol (vitamin D3) [Vitamin D3] 25 mcg (1,000 unit) Tablet 25 mcg PO HS RF: 0 diclofenac sodium 1 % Gel 2 g TOPICAL QID PRN (Reason: Pain) RF: 0 Discharge Orders: Discharge Order (Routine); Ordered 07/25/20 Ordered By: Emily Bills/Other Patient Handouts: Tips for Using Less Salt, Managing Type 2 Diabetes, Managing Diabetes: The A1C Test, Eating Heart-Healthy Foods Admission Data Admit Date/Time: 07/20/20 17:56 Attending Provider: Emily Marlow Admit Provider: Inocencio Orta Primary Care Provider: J Luis Cantu Other Providers: Neri Gonzales ; Inocencio Orta ; Mauro Wharton ; Riaz Hong ; Maxwell Kamara ; Luz Maria Macias ; Alejandro Marcelino I. ; Bar Morales II ; Katie Valerio ; Se Alan ; Meme,[facility] ; Jennifer,Fax Other Interventions: Discharge Summary Assessment (RN) Last Done: 07/25/20 17:30
== END 2020-07-25 18:35 | disposition home health service (06) | DRG 872 ==
LOC: ED 13:33 → 2N 17:56 → SUATTDRO 17:56 → 2N 07-21 01:54